=== PATIENT | male | born 1955 | race Caucasian/White ===

== ENCOUNTER 2019-10-01 10:41 | Outpatient (CLI) | payer MEDICARE, SELFPAY ==
--- NOTE | ~2019-10-01 | XR_ITS ---
EXAMINATION: XR hip RT min 2V DATE: 10/01/2019 11:04 INDICATION: Right hip pain. TECHNIQUE: 2 views of right hip were obtained. COMPARISON: Right hip radiographs 04/28/2012 FINDINGS: Bone alignment is normal. No fracture. There is mild right hip osteoarthritis. IMPRESSION: 1. Mild right hip osteoarthritis. Reviewed, dictated and finalized at location A. DITER
== END 2019-10-01 10:42 | disposition home or self-care (01) ==
PROVIDERS: PCP Internal Medicine; Visit Provider Internal Medicine
DX: M25.551 Pain in right hip (principal)
CPT/HCPCS: 73502

== ENCOUNTER 2020-09-13 07:52 | Outpatient (CLI) | payer OTHER, SELFPAY ==
--- NOTE | ~2020-09-13 | MR_ITS ---
EXAMINATION: MR brain/brain stem wo/w con DATE: 09/13/2020 09:34 INDICATION: Diplopia and headaches TECHNIQUE: Magnetic resonance imaging (MRI) of the brain and brainstem was performed without and with 10 mL Multihance intravenous contrast. Sequences included sagittal and axial T1-weighted SE, axial d iffusion-weighted FS SE, axial T2*-weighted GRE, axial T2-weighted FLAIR, and axial T2-weighted FSE. Postcontrast axial, sagittal and coronal T1-weighted SE was obtained. Apparent diffusion coefficient (ADC) maps were created. COMPARISON: None. FINDINGS: There are no areas of restricted diffusion to suggest acute infarction. No intracranial hemorrhage or abnormal intracranial mass lesion. There are no intraparenchymal signal abnormalities seen on the ot her pulse sequences. Symmetric prominence of the sulci consistent with mild age-appropriate diffuse c erebral volume loss. The ventricles are symmetric and normal in size. There are no abnormal extra-axi al fluid collections. Flow voids are seen in the cerebral arteries on the T2-weighted sequences consi stent with their expected patency. Mild mucosal thickening the bilateral ethmoid sinuses. Chronic rig ht mastoid effusion. Visualized orbits and soft tissues are unremarkable. There are no areas of abnor mal enhancement on the post contrast images. IMPRESSION: 1. Normal aging brain. No acute intracranial process or abnormally enhancing brain lesions. Reviewed, dictated and finalized at location A. RVISOR REFINING IMPRESSION: 1. Normal aging brain. No acute intracranial process or abnormally enhancing br ain lesions.
[2020-09-13 08:17] LABS: Estimated Glomerular Filt Rate 57
== END 2020-09-13 07:53 | disposition home or self-care (01) ==
LOC: CHSIMG 07:54
PROVIDERS: PCP Internal Medicine; Visit Provider Internal Medicine
DX: H53.2 Diplopia (principal)
CPT/HCPCS: 70553; A9577

== ENCOUNTER 2021-07-23 07:26 | Outpatient (CLI) | payer MEDICARE, OTHER, SELFPAY ==
[2021-07-23 07:41] LABS: Hematocrit 38.5 % (37.0-46.0); Hemoglobin 12.7 g/dL (12.4-15.3); Mean Corpuscular Hemoglobin 30.2 pg (27.0-31.0); Mean Corpuscular Volume 91.7 fL (78.0-102.0); Platelet Count Result 157 K/mm3 (150-420); Red Cell Distribution Width 11.6 % (11.6-14.4); White Blood Count 6.7 K/mm3 (4.8-10.8)
[2021-07-23 07:43] LABS: Add Urine Microscopic? YES; Appearance Urine Clear (Clear); Bilirubin Urine Negative (Negative); Blood Urine 1+ (Negative); Color Urine Light Yellow (Yellow); Glucose Urine UA Negative (Negative); Ketones Urine Negative (Negative); Leukocyte Esterase Ur Negative (Negative); Nitrate Urine Negative (Negative); Protein Urine Negative (Negative); Specific Grav Ur 1.025 (1.010-1.020); Urobilinogen Urine 0.2 mg/dL (0.2-1.0)
[2021-07-23 07:49] LABS: Bacteria Urine None seen /hpf; RBC Urine 0-2 /hpf (0-2); Squamous Epithelial Cell Urine Rare /hpf (Few); WBC Urine 0-3 /hpf (0-3)
[2021-07-23 08:34] LABS: Band Neutrophils Percent 0 % (0-6); Basophils Absolute Manual 0.13 K/mm3 (0-0.1); Basophils Percent Manual 2 % (0-1); Eosinophils Percent Manual 6 % (1-6); Lymphocytes Absolute Manual 0.87 K/mm3 (1.1-4.5); Lymphocytes Percent Manual 13 % (18-44); Monocytes Absolute Manual 1.67 K/mm3 (0.1-0.90); Monocytes Percent Manual 25 % (3-9); Neutrophils Absolute Manual 3.61 K/mm3 (1.3-6.7); Neutrophils Percent Manual 54 % (46-73); Platelet Estimate Adequate (Adequate); Total Cells Counted 100
[2021-07-23 09:55] LABS: Alanine Aminotransferase 20 U/L (16-63); Albumin Level 3.5 g/dL (3.4-5.0); Alkaline Phosphatase 71 U/L (46-116); Anion Gap 8 mmol/L (8-16); Aspartate Amino Transferase 13 U/L (15-37); Bilirubin,Total 0.3 mg/dL (0.00-1.00); Blood Urea Nitrogen 16 mg/dL (7-18); Calcium 8.3 mg/dL (8.5-10.1); Carbon Dioxide 27 mmol/L (21-32); Chloride 105 mmol/L (98-108); Cholesterol 108 mg/dL (0-200); Creatine Kinase 62 U/L (39-308); Estimated Glomerular Filt Rate 53; Free T3 2.59 pg/mL (2.18-3.98); Free T4 Free Thyroxine 1.17 ng/dL (0.76-1.46); Glucose 87 mg/dL (70-99); HDL Direct 56 mg/dL (40-60); LDL Cholesterol Calculated 46 mg/dL (<130); NT Pro B Type Natriuretic Pept 173 pg/mL (0-125); Osmolality Calculated 290 mOsm/kg (285-295); Potassium 3.9 mmol/L (3.5-5.1); Prostate Specific Antigen 0.9 ng/mL (< OR = 4.0); Sodium 140 mmol/L (136-145); Thyroid Stimulating Hormone 3.55 uIU/mL (0.36-3.74); Total Protein 6.1 g/dL (6.4-8.2); Triglycerides 32 mg/dL (0-150); Vitamin B12 375 pg/mL (193-986)
== END 2021-07-23 07:27 | disposition home or self-care (01) ==
LOC: CHSLAB 07:27
PROVIDERS: PCP Internal Medicine; Visit Provider Internal Medicine
DX: Z00.00 Encounter for general adult medical examination without abnormal findings (principal); R94.6 Abnormal results of thyroid function studies; Z12.5 Encounter for screening for malignant neoplasm of prostate; N39.0 Urinary tract infection, site not specified; I95.2 Hypotension due to drugs; E78.2 Mixed hyperlipidemia; R06.00 Dyspnea, unspecified
CPT/HCPCS: 36415; 80053; 80061; 81001; 82550; 82607; 83880; 84153; 84439; 84443; 84481; 85025; 87086

== ENCOUNTER 2022-01-13 13:05 | Outpatient (CLI) | payer MEDICARE, SELFPAY ==
--- NOTE | 2022-01-13 13:20 | PC.NURSE ---
Pt to room 211 amb. A&Ox3. Complains of sinus symptoms and fatigue. Plan of care explained. Consent signed. Oriented to room. Call willson in reach. Has no questions. Reminded to call with needs.
[2022-01-13] MEDS: ACETAMINOPHEN 325 MG TABLET 650 MG PO (13:38)
[2022-01-13] MEDS: BEBTELOVIMAB 175 MG/2 ML VIAL IV PUSH (13:39)
[2022-01-13] MEDS: FAMOTIDINE 20 MG TABLET PO (13:39)
[2022-01-13] MEDS: diphenhydrAMINE HCl CAP 25 MG CAPSULE PO (13:39)
--- NOTE | 2022-01-13 14:15 | PC.NURSE ---
Pt tolerated medication well. Has no questions or complaints. Discharged to home amb per self.
== END 2022-01-13 13:06 | disposition home or self-care (01) ==
LOC: CHSTREATRM 13:11
PROVIDERS: PCP Family Medicine; Visit Provider Family Medicine
DX: U07.1 COVID-19 (principal); I25.10 Atherosclerotic heart disease of native coronary artery without angina pectoris
CPT/HCPCS: A9270; M0222; Q0222

== ENCOUNTER 2022-03-29 14:00 | Outpatient (RCR) | payer MEDICARE, SELFPAY ==
--- NOTE | 2022-03-24 17:08 | PTOPEVAL ---
Thank you for referring Richard Coles to [facility].? The patient is scheduled to be seen for therapy? ____x/week for ___ weeks. Please review, sign, date and return this plan of care JANESSA. I agree with and certify that the following plan of care is medically necessary. Referring Physician Date Admitting Provider: Attending Provider: Vanita Manzo MD Referring Provider: *PT Outpatient Evaluation Start: 03/24/22 16:05 Freq: Status: Active Protocol: Document 03/24/22 16:07 [facility] (Rec: 03/24/22 17:07 [facility] [id number]) Therapy Assessment Status Assessment Status Assessment Status Evaluation Evaluation Information Problem Diagnosis acute r sided lumbago, R illio -lumbar sprain, R SI joint sprain Onset 03/23/22 Additional Evaluation Detail oswestry = 42% functionally declined Subjective Information patient reports no specific Query Text:As Reported By Patient/ injury. he reports about a Family week or so ago he made a sharp turn around to look for a car while walking. he reports the pain began a few days later. he reports he has had cortizone injections in each hip. he reports he has no had any imaging. he reports he has increased pain in the R side lower back/flank with standing for increased time. he reports he does have pain with sitting, but worse with standing. he reports decreased pain in the mornings, and worse in the evenings. he reports no NTB in the legs. Prior Level of Function Comments Additional Prior Level of Function prior to a week or so ago, no Comments issues with the back or hips. Pain Assessment Timing of Pain Assessment Timing of Pain Assessment Assessment Pain Scale Pain Scale Used Numeric (1 - 10) Self Report Pain Assessment Lower Back Reported Pain Level 6 Greatest Pain Intensity 7 Pain Score Pain Score 6: Self Report Interventions Used Interventions Used By Clinicians Medication,Rest Pain Relief Interventions Used By Heat,Medication,Relaxation Patient Technique,Sitting Cervical and Lumbar ROM Lumbar ROM Lumbar Flexion Active Ankle Query Text:Hands to: Lumbar Extension (0-40)
--- NOTE | 2022-04-29 09:01 | PTOPREEVAL ---
Assessment and note entered by JT File, PT Evaluation Information Assessment Status Re-evaluation Diagnosis acute R sided lumbago, R illio/lumbar sprain, R SIJ sprain Onset 03/23/22 Subjective Information patient reports his hip is much better, but his back is still bothersome. he reports eh just returned from a trip to [place]. he reports it was a long plane ride both ways, and a lot of walking. he reports he has had 2 injections, but reports these have worn off. he reports he has increased pain in the back with standing and sitting for increased time. he reports he has pain all day long. patient reports he has felt he has been taking shallow breaths due to the pain in his thoracic spine. Reported Pain Level Pain Score 5: Self Report Additional Pain Score Comments patient reports no longer having pain in the lower back or SIJ. Assessment PT Clinical Summary mr. yousif presents to therapy for his 7th skilled PT visit. he has not been to therapy in a few weeks due to being on vacation in [facility]. he no longer presents with symptoms of hip, SIJ, or lower back pain. however, his middle/upper back is now painful. he presents with weak scapular stabilizers, poor upper back posture, and pain in the T7-T9 thoracic spine. he would do well to continue therapy for his upper/middle back with an extension of his POC beginning today. Plan of Care Interventions Electrical Stimulation,Hot Pack/Cold Pack,Manual Therapy,Neuro Re-education,Patient/Caregiver Educati,Therapeutic Activities,Therapeutic Exercise PT Services Indicated Yes Treatment Frequency and continue therapy 2x weekly for 6 visits beginning Duration today. These treatments will address the objective and functional deficits as defined above. The patient will be advanced safely and appropriately in order for the patient to progress towards his/her prior level of function. Additional exercises will be introduced and as well as a comprehensive home exercise program upon discharge, if needed, ?to ensure carryover of functional gains achieved in the clinic. This treatment plan has been reviewed and agreement upon by the patient.
--- NOTE | 2022-06-02 09:43 | PTOPDC ---
Assessment and note entered by JT File, PT Evaluation Information Assessment Status Re-evaluation Diagnosis acute R sided lumbago, R illio/lumbar sprain, R SIJ sprain Onset 03/23/22 Subjective Information patient reports he feels pretty good this date. he reports no pain in the upper back today, but some soreness in the lower back. he reports he feels he might have just slept wrong last night. he reports overall he feels much better, but still has increased pain with prolonged standing and walking. Reported Pain Level Pain Score 0,3: Self Report Assessment PT Clinical Summary mr. yousif presents to skilled PT for his 13th skilled therapy visit this date. he presnts with decreased upper back pain, and in general decreased lower back pain overall. however, he is a bit sore from sleeping wrong last night. he displays improved strength and core stability this date. however, he continues to display flexed upper back posture and rounded shoulders. he was educated on an extensive HEP this date to continue with scapular strengthening and postural awareness exercises/activities at home. he would do well to DC skilled PT with having met roughly 75% of goals for skilled PT thus far. he would do well to continue HEP at home. he has an additial order from his MD that will be held for now, and patient will follow up in about 1-2 months with skilled PT. Plan of Care Treatment Frequency and DC to independent HEP and follow up with PT in 1-2 Duration months.
== END 2022-06-02 14:54 | disposition home or self-care (01) ==
LOC: CHSPT 14:00
PROVIDERS: PCP Internal Medicine; Visit Provider Internal Medicine
DX: M54.50 Low back pain, unspecified (principal); M54.2 Cervicalgia; M54.6 Pain in thoracic spine
CPT/HCPCS: 97014; 97110; 97140; 97161; 97530; G0283

== ENCOUNTER 2022-05-13 10:22 | Outpatient (CLI) | payer MEDICARE, SELFPAY ==
--- NOTE | ~2022-05-13 | XR_ITS ---
EXAMINATION:XR_CERV2-3V_CR, XR thoracic spine 3V, XR lumbar spine 2-3V DATE: 05/13/2022 11:18 INDICATION: Back pain TECHNIQUE: 1. AP, lateral and odontoid views of the cervical spine are provided. 2. AP, lateral and lateral swimmer's views of the thoracic spine were obtained. 3. AP, lateral and coned-down lateral lumbosacral views of the lumbar spine were obtained. COMPARISON: None FINDINGS: Cervical spine: Alignment is normal. Odontoid is intact. Normal atlantoaxial interval. Vertebral body heights are no rmal. Disc spaces are normal. Mild to moderate cervical facet osteoarthritis most prominent on the le ft at C4-C5 and C5-C6 and bilaterally at C7-T1. Prevertebral soft tissues are normal. Thoracic spine: 10 degrees upper thoracic levocurvature. Mild upper thoracic kyphosis. Vertebral body heights are nor mal. Multilevel mild to moderate disc height loss most prominent in the mid to upper thoracic spine. Visualized portion of the lungs are clear. Lumbar spine: 6 degrees lumbar dextrocurvature. Sagittal alignment is normal. Vertebral body heights are normal. Di sc heights are normal. Multilevel lumbar facet osteoarthritis, mild in the mid upper lumbar spine and moderate severity at L4-L5 and L5-S1. Sacral arches are intact. Mild left and minimal right sacroili ac osteoarthritis. IMPRESSION: 1. Mild upper thoracic levocurvature and mild kyphosis with mild to moderate thoracic spondylosis. 2. Mild to moderate facet osteoarthritis in the cervical and lumbar spine where there are relatively preserved disc spaces. Reviewed, dictated and finalized at location B. IMPRESSION: 1. Mild upper thoracic levocurvature and mild kyphosis with mild to moderate th oracic spondylosis. 2. Mild to moderate facet osteoarthritis in the cervical and lumbar spine where there are relatively preserved disc spaces. IMPRESSION: 1. Mild upper thoracic levocurvature and mild kyphosis with mild to moderate th oracic spondylosis. 2. Mild to moderate facet osteoarthritis in the cervical and lumbar spine where there are relatively preserved disc spaces.
== END 2022-05-13 10:23 | disposition home or self-care (01) ==
LOC: CHSIMG 10:24
PROVIDERS: PCP Internal Medicine; Visit Provider Internal Medicine
DX: M54.9 Dorsalgia, unspecified (principal); M47.812 Spondylosis without myelopathy or radiculopathy, cervical region; M47.816 Spondylosis without myelopathy or radiculopathy, lumbar region
CPT/HCPCS: 72040; 72072; 72100

== ENCOUNTER 2022-06-03 08:24 | Outpatient (CLI) | payer MEDICARE, SELFPAY ==
--- NOTE | ~2022-06-03 | MR_ITS ---
EXAMINATION: MR lumbar spine wo con DATE: 06/03/2022 09:48 INDICATION: 6 weeks of low back pain TECHNIQUE: Magnetic resonance imaging (MRI) of the lumbar spine was performed without intravenous con trast. Sequences included sagittal T2-weighted FSE, sagittal T2-weighted FS FSE, sagittal T1-weighted FSE, and axial T2-weighted FSE. COMPARISON: None FINDINGS: Alignment is normal. Vertebral body heights are normal. Small Schmorl's node along the inferior endpl ate of L1. T1 and T2 hyperintense hemangioma at the right side of L5. Otherwise normal marrow signal. Disc heights are normal with multilevel disc desiccation most prominent at L1-L2. The conus medullar is terminates at L2. There is normal signal in the caudal spinal cord. 9 mm T2 hyperintense cyst at t he upper pole of the left kidney. Paravertebral soft tissues are unremarkable. The following disc lev els are specifically discussed: T12-L1: The disc does not extend beyond the endplate margin. There is mild bilateral facet joint oste oarthritis. There is no neural foraminal stenosis. There is no central canal stenosis. L1-L2: Disc is mildly bulging. There is moderate bilateral facet joint osteoarthritis. There is minim al bilateral neural foraminal stenosis. There is minimal central canal stenosis. L2-L3: Disc is mildly bulging. There is mild left and moderate right facet joint osteoarthritis. Ther e is mild left and minimal right neural foraminal stenosis. There is mild central canal stenosis. L3-L4: Moderate diffuse disc bulge with superimposed and right foraminal zone annular fissure and dis c extrusion with disc material extending couple millimeters cephalad and caudal to the level of the e ndplates at the right foraminal zone. There is mild to moderate bilateral facet joint osteoarthritis. There is moderate right and mild to moderate left neural foraminal stenosis. There is mild central c anal stenosis with asymmetric mild narrowing of the right lateral recess. L4-L5: Disc is mildly bulging. There is moderate right and moderate to severe left facet joint osteoa rthritis. There is moderate bilateral neural foraminal stenosis. There is mild central canal stenosis . L5-S1: Disc is mildly bulging with annular fissure. There is mild right and mild to moderate left fac et joint osteoarthritis. There is mild to moderate bilateral neural foraminal stenosis. There is no c entral canal stenosis. IMPRESSION: 1. Mild lumbar spondylosis. Reviewed, dictated and finalized at location B. IMPRESSION: 1. Mild lumbar spondylosis.
== END 2022-06-03 08:25 | disposition home or self-care (01) ==
LOC: CHSIMG 08:26
PROVIDERS: PCP Internal Medicine; Visit Provider Internal Medicine
DX: M54.50 Low back pain, unspecified (principal)
CPT/HCPCS: 72148

== ENCOUNTER 2022-11-11 16:49 | Emergency (ER) | payer MEDICARE, SELFPAY ==
[2022-11-11] VITALS (19 sets, daily range): BP systolic 79–146; BP diastolic 51–85; PULSE 50–70; RESP 12–18; TEMP 36.2; O2SAT 94–100
--- NOTE | ~2022-11-11 | CT_ITS ---
EXAMINATION: CT brain wo con INDICATION: Lightheadedness, hypotension COMPARISON: 01/19/2013 TECHNIQUE: Standard unenhanced head CT. The dose-length product (DLP) was 681.00 mGy-cm. The mA was a djusted according to patient size. Iterative reconstruction technique was employed. FINDINGS: There is no intracranial hemorrhage, acute infarction, or abnormal mass lesion. The ventric les are normal. There is no abnormal mass effect or midline shift. The velasco-white matter differentiat ion is normal. The basal cisterns are patent. The orbits are normal. The paranasal sinuses, mastoids and calvarium are normal. IMPRESSION: 1. No acute intracranial abnormality. Reviewed, dictated and finalized at location F.
--- NOTE | ~2022-11-11 | XR_ITS ---
EXAMINATION: XR chest 1V portable INDICATION: Lightheadedness, hypotension TECHNIQUE: Portable AP chest at 1809 hours COMPARISON: 09/20/2011 FINDINGS: The lungs are free of acute opacities. No pleural effusion or pneumothorax. The cardiomedia stinal silhouette is normal. IMPRESSION: 1. No acute cardiopulmonary abnormality. Reviewed, dictated and finalized at location F.
--- NOTE | 2022-11-11 17:11 | ECG_ITS ---
Measurements Intervals [place] Rate: 55 P: GA: 269 QRS: 27 QRSD: 112 T: 64 QT: 455 QTc: 438 Interpretive Statements SINUS BRADYCARDIA WITH FIRST-DEGREE AV BLOCK INFERIOR MYOCARDIAL INFARCTION, PROBABLY OLD WITH POSTERIOR EXTENSION ABNORMAL ECG NO PREVIOUS ECG AVAILABLE FOR COMPARISON Electronically Signed On 11-12-2022 16:03:16 CDT by Connor Busby M.D.
[2022-11-11] MEDS: SODIUM CHLORIDE 0.9% IV 1,000 ML 999 ML IV CONT (17:18)
[2022-11-11 17:30] LABS: Mean Corpuscular HGB Conc 32.4 g/dL (32.0-36.0); Mean Corpuscular Hemoglobin 29.2 pg (27.0-31.0); Platelet Count Result 217 K/mm3 (150-420); Red Blood Count 4.11 M/mm3 (4.70-6.10); Red Cell Distribution Width 11.6 % (11.6-14.4); White Blood Count 6.3 K/mm3 (4.8-10.8)
[2022-11-11 17:51] LABS: D Dimer 0.19 mg/L (0.19-0.50); Partial Thromboplastin Time 26.9 SEC (23.90-30.70); Prothrombin Time 10.6 Seconds (9.50-12.10)
[2022-11-11 17:54] LABS: Neutrophils Percent Manual 52 % (46-73)
[2022-11-11 17:55] LABS: Band Neutrophils Percent 0 % (0-6); Basophils Percent Manual 0 % (0-1); Eosinophils Absolute Manual 0.31 K/mm3 (0.02-0.5); Eosinophils Percent Manual 5 % (1-6); Lymphocytes Absolute Manual 1.57 K/mm3 (1.1-4.5); Lymphocytes Percent Manual 25 % (18-44); Monocytes Absolute Manual 1.13 K/mm3 (0.1-0.90); Monocytes Percent Manual 18 % (3-9); Neutrophils Absolute Manual 3.27 K/mm3 (1.3-6.7); Platelet Estimate Adequate (Adequate)
[2022-11-11 17:58] LABS: Lactic Acid Reflex 0.7 mmol/L (0.4-2.0)
[2022-11-11 17:59] LABS: Alanine Aminotransferase 28 U/L (16-63); Albumin Level 3.5 g/dL (3.4-5.0); Alkaline Phosphatase 59 U/L (46-116); Anion Gap 8 mmol/L (8-16); Aspartate Amino Transferase 17 U/L (15-37); Bilirubin,Total 0.2 mg/dL (0.00-1.00); Blood Urea Nitrogen 27 mg/dL (7-18); Calcium 8.3 mg/dL (8.5-10.1); Carbon Dioxide 27 mmol/L (21-32); Chloride 107 mmol/L (98-108); Estimated CRCL calculation 46 ml/min; Estimated Glomerular Filt Rate 51; Glucose 103 mg/dL (70-99); NT Pro B Type Natriuretic Pept 672 pg/mL (0-125); Osmolality Calculated 299 mOsm/kg (285-295); Potassium 3.7 mmol/L (3.5-5.1); Sodium 142 mmol/L (136-145); Total Protein 6.3 g/dL (6.4-8.2)
[2022-11-11 18:03] LABS: Troponin I 102.1 ng/L (0.00-60.4)
--- NOTE | 2022-11-11 19:08 | PC.NURSE ---
Lab called to inform that their equipment is malfunctioning, and we will need to send chemistry including troponins to [facility] to be ran for the remainder of the evening. Pt has a 3hr repeat trop ordered for later tonight, so Dr. Cerda made aware of this future delay. 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
--- NOTE | 2022-11-11 19:38 | ED.DIZZY ---
HPI - Dizziness General Chief Complaint: Dizziness Stated Complaint: dizzy; low BP Time Seen by Provider: 11/11/22 17:01 Source: patient Mode of arrival: ambulatory Limitations: no limitations History of Present Illness HPI Narrative: this is a 67-year-old male that presents with a 3 day history of dizziness that he presented to his primary care physician's office with some dizziness and was sent to the ER for further evaluation. Patient has a history of CAD and history of cardiomyopathy, patient currently is not having any chest pain or shortness of breath there is no abdominal pain no nausea vomiting patient has a history of depression obstructive sleep apnea and hyperlipidemia, is a non smoker. MD elicited complaint: dizziness, lightheadedness, near syncope and difficulty walking Onset (ago): day(s) Timing: gradual onset Severity: moderate Description: lightheadedness, off-balance, difficulty walking and near-syncope Related Data Home Medications Medication Instructions Recorded Confirmed aripiprazole 15 mg tablet (Abilify) 15 mg PO DAILY 11/11/22 11/11/22 aspirin 81 mg tablet 81 mg PO DAILY 11/11/22 11/11/22 atorvastatin 20 mg tablet 10 mg PO DAILY 11/11/22 11/11/22 famotidine 20 mg tablet 40 mg PO QHS 11/11/22 11/11/22 fludrocortisone 0.1 mg tablet 0.1 mg PO BID 11/11/22 11/11/22 fluticasone propionate 50 2 spray intranasal DAILY 11/11/22 11/11/22 mcg/actuation nasal spray,suspension hydroxyzine pamoate 50 mg capsule 12.5 mg PO TID 11/11/22 11/11/22 lamotrigine 100 mg tablet 100 mg PO BID 11/11/22 11/11/22 lorazepam 0.5 mg tablet 1 mg PO BID 11/11/22 11/11/22 omeprazole 40 mg capsule,delayed 40 mg PO BID 11/11/22 11/11/22 release tranylcypromine 10 mg tablet 40 mg PO BID 11/11/22 11/11/22 (Parnate) trazodone 150 mg tablet 50 mg PO QHS 11/11/22 11/11/22 Allergies Allergy/AdvReac Type Severity Reaction Status Date / Time Penicillins Allergy Unknown UNKNOWN Verified 11/11/22 17:01 Review of Systems Review of Systems: All systems reviewed & are unremarkable except as noted in HPI and below PMFSH Past Medical History Medical History CAD (coronary artery disease) Cardiomyopathy GERD (gastroesophageal reflux disease) Exam Const: General: ill appearing Nutritional Appearance: well nourished Orientation/consciousness: patient oriented x3 Limitations: no limitations HENMT: Head: normal to inspection Eyes: Conjunctivae: conjunctivae normal Pupils: Equal, round and reactive pupils present EOM: EOMs intact bilaterally Neck: Neck: normal visual inspection Chest: Chest palpation & inspection: normal inspection of the chest Resp: Effort & Inspection: normal respiratory effort Cardio: Rate: bradycardic Rhythm: regular rhythm GI: Auscultation: normal bowel sounds Urinary Catheter: Urinary Catheter: patent and draining Skin: General skin exam: normal color Neuro: General: patient oriented x3 and moves all extremities Cranial nerves: Yes Nystagmus not present Speech: normal speech Extrem: General: normal to inspection Psych: Mental Status: mental status grossly normal Affect: normal affect Attitude: cooperative Course Course Emergency Course: labs performed and reviewed with patient, troponin was elevated at 102 his BMP also elevated at 672 I had a chest x-ray which showed no acute cardiopulmonary findings and CT brain with no acute findings. Spoke with some Cardiology at [facility] in [place] which accepted the patient for transfer. Patient continues to be comfortable with no shortness of breath no chest pain blood pressure is stable at 120 1/80 and currently he continues to have dizziness. Vital Signs Vital signs: Vital Signs Temperature 36.2 C L 11/11/22 16:49 Pulse Rate 70 11/11/22 16:49 Respiratory Rate 18 11/11/22 16:49 Blood Pressure 90/62 L 11/11/22 16:49 Pulse Oximetry 96 11/11/22 16:49 Ox
[2022-11-11] MEDS: ASPIRIN 325 MG ENTERIC TABLET PO (20:10)
== END 2022-11-11 21:50 | disposition short-term general hospital (02) ==
PROVIDERS: Emergency Provider Emergency Medicine; PCP Internal Medicine
DX: I21.4 Non-ST elevation (NSTEMI) myocardial infarction (principal); R42 Dizziness and giddiness; I25.10 Atherosclerotic heart disease of native coronary artery without angina pectoris; Z79.82 Long term (current) use of aspirin; Z79.899 Other long term (current) drug therapy
CPT/HCPCS: 36415; 70450; 71045; 80053; 83605; 83735; 83880; 84484; 85025; 85380; 85610; 85730; 93005; 96360; 99285; A9270; J7030

== ENCOUNTER 2022-11-30 08:03 | Outpatient (RCR) | payer MEDICARE, SELFPAY ==
--- NOTE | 2022-11-30 08:45 | PTOPEVAL1 ---
Assessment and note entered by [facility] Evaluation Information Assessment Status Evaluation Diagnosis weakness, low back pain Onset 11/22/22 Subjective Information Pt. reports that he has noticed he is fatiguing more easily. He reports that he attempts to walk about 1 mile a day, but it is getting more difficult. He states that he was recently at the doctor, and the doctor was concerned regarding the elevation of his BP with light activity. He does take medication due to low BP. He reports that he as not been diagnosed with CHF, but does have cardiomyopathy. He reports that his goal is to improve the strength in his legs and to improve his endurance. Reported Pain Level Pain Score 0: Self Report Assessment PT Clinical Summary Pt. enters the clinic due to reports of generalized weakness and SOB. He demonstrates mild changes in vitals with his 6 minute walk test . Functional deficits are minimal at this time. He currently presents with mild proximal l.e. weakness and core weakness. Continued skilled PT is indicated in order to assist with developing the pt. HEP and to assist with improvements in endurance with IADL's. Plan of Care Interventions Neuro Re-education,Patient/Caregiver Educati, Therapeutic Activities,Therapeutic Exercise PT Services Indicated Yes Treatment Frequency and 1x/week x 4 visits Duration These treatments will address the objective and functional deficits as defined above. The patient will be advanced safely and appropriately in order for the patient to progress towards his/her prior level of function. Additional exercises will be introduced and as well as a comprehensive home exercise program upon discharge, if needed, ?to ensure carryover of functional gains achieved in the clinic. This treatment plan has been reviewed and agreement upon by the patient.
== END 2022-12-28 09:02 | disposition home or self-care (01) ==
LOC: CHSPT 08:03
PROVIDERS: PCP Internal Medicine; Visit Provider Internal Medicine
DX: M54.50 Low back pain, unspecified (principal); R53.1 Weakness
CPT/HCPCS: 97110; 97112; 97161; 97530

== ENCOUNTER 2023-02-03 16:04 | Emergency (ER) | payer MEDICARE, SELFPAY ==
[2023-02-03 16:04] VITALS: BP 133/84; PULSE 68; RESP 20; TEMP 36.9; O2SAT 97
[2023-02-03 16:14] VITALS: BP 151/87; PULSE 62
[2023-02-03 16:15] VITALS: BP 158/98; PULSE 67
[2023-02-03 16:16] VITALS: BP 133/84; PULSE 69
[2023-02-03 16:30] VITALS: BP 142/92
--- NOTE | 2023-02-03 16:35 | ED.GENADULT ---
HPI - General Adult General Chief complaint: Unspecified Stated complaint: low bp Time Seen by Provider: 02/03/23 16:21 Source: patient Mode of arrival: ambulatory Limitations: no limitations History of Present Illness HPI narrative: This is a 68-year-old male that presents with some hypotensive issues while at home he had a blood pressure leading that was quite low and was seen and is primaries office and had low blood pressure presented to the ER per advice by his primary with low blood pressure. The patient appears comfortable with no chest pain no shortness of breath no fever chills no abdominal pain no nausea vomiting no diarrhea or constipation. The patient does take medication for low blood pressure. Here blood pressure is reading at 133/84 without any orthostatic changes. Onset (ago): hour(s) Related Data Home Medications Medication Instructions Recorded Confirmed aripiprazole 15 mg tablet (Abilify) 15 mg PO DAILY 11/11/22 11/11/22 aspirin 81 mg tablet 81 mg PO DAILY 11/11/22 11/11/22 atorvastatin 20 mg tablet 10 mg PO DAILY 11/11/22 11/11/22 famotidine 20 mg tablet 40 mg PO QHS 11/11/22 11/11/22 fludrocortisone 0.1 mg tablet 0.1 mg PO BID 11/11/22 11/11/22 fluticasone propionate 50 2 spray intranasal DAILY 11/11/22 11/11/22 mcg/actuation nasal spray,suspension hydroxyzine pamoate 50 mg capsule 12.5 mg PO TID 11/11/22 11/11/22 lamotrigine 100 mg tablet 100 mg PO BID 11/11/22 11/11/22 lorazepam 0.5 mg tablet 1 mg PO BID 11/11/22 11/11/22 omeprazole 40 mg capsule,delayed 40 mg PO BID 11/11/22 11/11/22 release tranylcypromine 10 mg tablet 40 mg PO BID 11/11/22 11/11/22 (Parnate) trazodone 150 mg tablet 50 mg PO QHS 11/11/22 11/11/22 Allergies Allergy/AdvReac Type Severity Reaction Status Date / Time Penicillins Allergy Unknown UNKNOWN Verified 11/11/22 17:01 Review of Systems Review of Systems: All systems reviewed & are unremarkable except as noted in HPI and below PMFSH Past Medical History Medical History CAD (coronary artery disease) Cardiomyopathy GERD (gastroesophageal reflux disease) Exam Const: General: cooperative, healthy appearing, comfortable, no acute distress and well developed HENMT: Mouth: Yes Normal oral and palatal mucosa present Throat: posterior oropharynx normal Eyes: General: appearance normal, both eyes and all related structures Neck: Neck: normal visual inspection, full ROM and no lymphadenopathy Chest: Chest palpation & inspection: normal inspection of the chest and normal palpation of entire chest wall Resp: Effort & Inspection: normal respiratory effort and able to speak in complete sentences Cardio: Jugular venous distension: no JVD Palpation: normal PMI Rate: regular rate Rhythm: regular rhythm GI: Inspection: normal to inspection Auscultation: normal bowel sounds Back/Spine/Pelvis: Back: no CVA tenderness Skin: General skin exam: normal color and no rashes or lesions noted Neuro: General: oriented to person, oriented to place and oriented to time Extrem: General: normal to inspection, full ROM and capillary refill normal Course Course Emergency Course: Blood pressure readings 133/84 and was not orthostatic, currently appears comfortable and declining any blood work at this time since he feels fine and his blood pressure is stable. Vital Signs Vital signs: Vital Signs Temperature 36.9 C 02/03/23 16:04 Pulse Rate 68 02/03/23 16:04 Respiratory Rate 20 02/03/23 16:04 Blood Pressure 133/84 02/03/23 16:04 Pulse Oximetry 97 02/03/23 16:04 Oxygen Delivery Room Air 02/03/23 16:04 Temperature 36.9 C 02/03/23 16:04 Pulse Rate 69 02/03/23 16:16 Respiratory Rate 20 02/03/23 16:04 Blood Pressure 133/84 02/03/23 16:16 Pulse Oximetry 97 02/03/23 16:04 Oxygen Delivery Room Air 02/03/23 16:04 Medical Decision Making Vital Signs Vital Signs:
[2023-02-03 16:45] VITALS: BP 153/94; PULSE 64; RESP 18; O2SAT 95
== END 2023-02-03 16:57 | disposition home or self-care (01) ==
PROVIDERS: Emergency Provider Emergency Medicine; PCP Internal Medicine
DX: I95.89 Other hypotension (principal); I25.10 Atherosclerotic heart disease of native coronary artery without angina pectoris; Z79.82 Long term (current) use of aspirin; Z79.899 Other long term (current) drug therapy
CPT/HCPCS: 99281

== ENCOUNTER 2024-06-11 15:19 | Emergency (ER) | payer MEDICARE, SELFPAY ==
[2024-06-11] VITALS (19 sets, daily range): BP systolic 90–139; BP diastolic 53–81; PULSE 58–73; RESP 14–16; TEMP 36.3–36.9; O2SAT 83–100
--- NOTE | 2024-06-11 15:24 | ECG_ITS ---
Test Date: 2024-06-11 15:48:17 Measurements Intervals Monument Rate: 50 P: 60 TN: 221 QRS: 51 QRSD: 113 T: 74 QT: 434 QTc: 400 Interpretive Statements SINUS BRADYCARDIA WITH FIRST DEGREE AV BLOCK MINIMAL Q WAVES- INFERIOR LEADS BORDERLINE ECG No previous ECG available for comparison Electronically Signed On 06-11-2024 18:21:33 OIL GAUGER by Luisito Angeles D.O.
--- NOTE | 2024-06-11 15:28 | ED.DIZZY ---
HPI - Dizziness General Chief Complaint: Dizziness Stated Complaint: LOW BLOOD PRESSURE Time Seen by Provider: 06/11/24 15:24 History of Present Illness HPI Narrative: Pt says he has low Bp readings at home of 70/40. Pt has history of orthostatic hypotension and says he takes cortisone and this has stabilized the issue. Pt feels a little dizzy with position changes but denies syncope, CP, SOB or melena. Related Data Home Medications Medication Instructions Recorded Confirmed aripiprazole 15 mg tablet (Abilify) 15 mg PO DAILY 11/11/22 11/11/22 aspirin 81 mg tablet 81 mg PO DAILY 11/11/22 11/11/22 atorvastatin 20 mg tablet 10 mg PO DAILY 11/11/22 11/11/22 famotidine 20 mg tablet 40 mg PO QHS 11/11/22 11/11/22 fludrocortisone 0.1 mg tablet 0.1 mg PO BID 11/11/22 11/11/22 fluticasone propionate 50 2 spray intranasal DAILY 11/11/22 11/11/22 mcg/actuation nasal spray,suspension hydroxyzine pamoate 50 mg capsule 12.5 mg PO TID 11/11/22 11/11/22 lamotrigine 100 mg tablet 100 mg PO BID 11/11/22 11/11/22 lorazepam 0.5 mg tablet 1 mg PO BID 11/11/22 11/11/22 omeprazole 40 mg capsule,delayed 40 mg PO BID 11/11/22 11/11/22 release tranylcypromine 10 mg tablet 40 mg PO BID 11/11/22 11/11/22 (Parnate) trazodone 150 mg tablet 50 mg PO QHS 11/11/22 11/11/22 Allergies Allergy/AdvReac Type Severity Reaction Status Date / Time Penicillins Allergy Unknown UNKNOWN Verified 06/11/24 15:30 Review of Systems Review of Systems: All systems reviewed & are unremarkable except as noted in HPI and below PMFSH Past Medical History Medical History CAD (coronary artery disease) Cardiomyopathy GERD (gastroesophageal reflux disease) Exam Const: General: healthy appearing and no acute distress Nutritional Appearance: well nourished Orientation/consciousness: patient oriented x3 Limitations: no limitations Resp: Effort & Inspection: normal respiratory effort Auscultation: clear to auscultation bilaterally Cardio: Rate: regular rate Rhythm: regular rhythm GI: GI Palp: Yes Soft to palpation and No Tenderness to palpation present (GI) Auscultation: normal bowel sounds Skin: General skin exam: normal color Rashes: no rashes Wounds: no wounds Neuro: General: patient oriented x3, moves all extremities, no meningeal signs, no focal motor deficits and CN's II-XI intact bilaterally Cranial nerves: Yes Nystagmus not present Speech: normal speech Extrem: General: normal to inspection and no clubbing, cyanosis or edema Psych: Mental Status: mental status grossly normal Affect: normal affect Attitude: cooperative Course Vital Signs Vital signs: Vital Signs Temperature 97.4 F L 06/11/24 15:20 Pulse Rate 68 06/11/24 15:20 Respiratory Rate 16 06/11/24 15:20 Blood Pressure 116/67 06/11/24 15:20 Pulse Oximetry 96 06/11/24 15:20 Oxygen Delivery Room Air 06/11/24 15:20 Temperature 97.4 F L 06/11/24 15:20 Pulse Rate 59 L 06/11/24 16:15 Respiratory Rate 14 06/11/24 16:15 Blood Pressure 127/76 06/11/24 16:15 Pulse Oximetry 100 06/11/24 16:16 Oxygen Delivery Room Air 06/11/24 15:20 MDM - Dizziness MDM Narrative Medical decision making narrative: Pt presents with dizziness and low BP. Pt has a history of orthostatic hypotension. Pt denies vomiting or diarrhea or melena. Pt take cortisone and has missed no doses. Will check orthostatics (lying was SBP 116), and labs and get ekg. Will give NS bolus. Pt feels better after fluids. WBC up likely due to steroids. Other labs unremarkable for most part. OK for discharge Lab Data 06/11/24 15:39 06/11/24 15:39 Labs: Lab Results 06/11/24 Range/Units 15:39 WBC 14.7 H (4.8-10.8) K/mm3 RBC 4.07 L (4.70-6.10) M/mm3 Hgb 12.1 L (12.4-15.3) g/dL Hct 36.1 L (37.0-46.0) % MCV 88.7 (78.0-102.0) fL MCH 29.7 (27.0-31.0) pg MCHC 33.5 (32-36) g/dL RDW 11.7 (11.6-14.4) % Plt Count 230 (150-420) K/mm3 MPV 9.8 (8.7-11.0) fl Immature Gran % (Auto) 0.5 H (0.0-0.0) % Neut % (Auto) 71.2 H (50.0-70.0) % Lymph % (Auto) 9.4 L (18.0-42.0) % [place] % (Auto) 16.5 H (2.0-11.0) % Eos % (Auto) 2.3 (1.0-6.0) % Baso % (Auto) 0.1 (0.0-1.0) % Lymph # (Auto) 1.38 (1.10-4.50) K/mm3 [place] # (Auto) 2.43 H (0.10-0.90) K/mm3 Eos # (Auto) 0.34 (0.02-0.50) K/mm3 Baso # (Auto) 0.02 (0.00-0.10) K/mm3 Abs Immat Gran (auto) 0.08 H (0.00-0.00) K/mm3 Absolute Neuts (auto) 10.48 H (1.70-7.20) K/mm3 Absolute Nucleated RBC 0.00 (0.00-0.00) K/mm3 Nucleated RBC % 0.0 (0-0.0) % PT 10.5 (9.50-12.1) Seconds INR 1.0 APTT 29.5 (23.9-30.70) Sec Sodium 140 (136-145) mmol/L Potassium 4.1 (3.5-5.1) mmol/L Chloride 104 (98-108) mmol/L Carbon Dioxide 28 (21-32) mmol/L Anion Gap 8 (4-12) mmol/L BUN 18 (7-18) mg/dL Creatinine 1.25 (0.70-1.30) mg/dL Estim Creat Clear Calc 52 ml/min Estimated GFR 57 L (59 - ) Glucose 105 H (70-99) mg/dL Calculated Osmolality 291 (285-295) mOsm/kg Calcium 9.0 (8.5-10.1) mg/dL Magnesium 2.2 (1.8-2.4) mg/dL Total Bilirubin 0.4 (0.00-1.00) mg/dL AST 14 L (15-37) U/L ALT 28 (16-63) U/L Alkaline Phosphatase 62 (46-116) U/L Troponin I 8.4 (0.00-60.4) ng/L NT-Pro-B Natriuret Pep 274 H (0-125) pg/mL Total Protein 6.2 L (6.4-8.2) g/dL Albumin 3.2 L (3.4-5.0) g/dL ECG Data EKG #1: Interpretation: sinus jerome with 1st degree av block, no acute st changes rate 50 Discharge Plan Discharge Clinical Impression: Orthostatic hypotension Patient Disposition: Home, Self-Care Condition: Improved Instructions: Antibiotic Form, Lightheadedness (ED) Prescriptions: No Action atorvastatin 20 mg tablet 10 mg PO DAILY tranylcypromine [Parnate] 10 mg Tablet 40 mg PO BID hydroxyzine pamoate 50 mg capsule 12.5 mg PO TID omeprazole 40 mg capsule,delayed release(DR/EC) 40 mg PO BID famotidine 20 mg tablet 40 mg PO QHS lorazepam 0.5 mg tablet 1 mg PO BID trazodone 150 mg tablet 50 mg PO QHS aspirin 81 mg Tablet 81 mg PO DAILY fluticasone propionate 50 mcg/actuation spray,suspension 2 spray INTRANASAL DAILY fludrocortisone 0.1 mg tablet 0.1 mg PO BID lamotrigine 100 mg tablet 100 mg PO BID aripiprazole [Abilify] 15 mg Tablet 15 mg PO DAILY Rx Instructions: every tuesday and Follow-up/Referrals: Vanita Manzo MD [Primary Care Provider] -
[2024-06-11] MEDS: SODIUM CHLORIDE 0.9% IV 1,000 ML 999 ML IV CONT (15:33)
[2024-06-11 15:45] LABS: Basophils Absolute Auto 0.02 K/mm3 (0.00-0.10); Basophils Percent Auto 0.1 % (0.0-1.0); Eosinophils Absolute Auto 0.34 K/mm3 (0.02-0.50); Eosinophils Percent Auto 2.3 % (1.0-6.0); Hematocrit 36.1 % (37.0-46.0); Hemoglobin 12.1 g/dL (12.4-15.3); Immature Granulocyte Absolute 0.08 K/mm3 (0.00-0.00); Immature Granulocyte Percent A 0.5 % (0.0-0.0); Lymphocytes Absolute Auto 1.38 K/mm3 (1.10-4.50); Lymphocytes Percent Auto 9.4 % (18.0-42.0); Mean Corpuscular HGB Conc 33.5 g/dL (32-36); Mean Corpuscular Hemoglobin 29.7 pg (27.0-31.0); Mean Corpuscular Volume 88.7 fL (78.0-102.0); Mean Platelet Volume 9.8 fl (8.7-11.0); Monocytes Absolute Auto 2.43 K/mm3 (0.10-0.90); Monocytes Percent Auto 16.5 % (2.0-11.0); Neutrophils Absolute Auto 10.48 K/mm3 (1.70-7.20); Neutrophils Percent Auto 71.2 % (50.0-70.0); Platelet Count Result 230 K/mm3 (150-420); Red Blood Count 4.07 M/mm3 (4.70-6.10); Red Cell Distribution Width 11.7 % (11.6-14.4); White Blood Count 14.7 K/mm3 (4.8-10.8)
[2024-06-11 16:01] LABS: Partial Thromboplastin Time 29.5 Sec (23.9-30.70); Prothrombin Time 10.5 Seconds (9.50-12.1)
[2024-06-11 16:16] LABS: Alanine Aminotransferase 28 U/L (16-63); Albumin Level 3.2 g/dL (3.4-5.0); Alkaline Phosphatase 62 U/L (46-116); Aspartate Amino Transferase 14 U/L (15-37); Bilirubin,Total 0.4 mg/dL (0.00-1.00); Magnesium 2.2 mg/dL (1.8-2.4); NT Pro B Type Natriuretic Pept 274 pg/mL (0-125); Total Protein 6.2 g/dL (6.4-8.2); Troponin I 8.4 ng/L (0.00-60.4)
[2024-06-11 16:17] LABS: Anion Gap 8 mmol/L (4-12); Blood Urea Nitrogen 18 mg/dL (7-18); Carbon Dioxide 28 mmol/L (21-32); Chloride 104 mmol/L (98-108); Osmolality Calculated 291 mOsm/kg (285-295); Potassium 4.1 mmol/L (3.5-5.1); Sodium 140 mmol/L (136-145)
[2024-06-11 16:18] LABS: Estimated CRCL calculation 52 ml/min; Estimated Glomerular Filt Rate 57; Glucose 105 mg/dL (70-99)
== END 2024-06-11 17:09 | disposition home or self-care (01) ==
PROVIDERS: Emergency Provider Emergency Medicine; PCP Internal Medicine
DX: I95.1 Orthostatic hypotension (principal); I25.10 Atherosclerotic heart disease of native coronary artery without angina pectoris; Z79.899 Other long term (current) drug therapy
CPT/HCPCS: 36415; 80053; 83735; 83880; 84484; 85025; 85610; 85730; 93005; 96360; 99284; J7030

== ENCOUNTER 2024-06-12 16:32 | Outpatient (CLI) | payer MEDICARE, SELFPAY ==
--- NOTE | ~2024-06-12 | XR_ITS ---
HISTORY: Left thumb pain COMPARISON: None TECHNIQUE: 3 views of the left hand were performed. FINDINGS: No acute or subacute fracture is identified. The joint spaces of the wrist are preserved. The carpal arcs are intact. Periarticular osteopenia is present. Degenerative disease within the first carpometacarpal joint space. Bone mineralization is unremarkable for patient of this age. No significant soft tissue swelling. No radiopaque foreign body is identified. IMPRESSION: Degenerative disease, without acute fracture or dislocation within the left hand, as detailed above. Reviewed, dictated and finalized at location A. RTISING MANAGER IMPRESSION: Degenerative disease, without acute fracture or dislocation within the left llanos d, as detailed above.
[2024-06-12 16:57] LABS: Hematocrit 36.1 % (37.0-46.0); Hemoglobin 11.9 g/dL (12.4-15.3); Mean Corpuscular Hemoglobin 29.3 pg (27.0-31.0); Mean Corpuscular Volume 88.9 fL (78.0-102.0); Mean Platelet Volume 9.7 fl (8.7-11.0); Platelet Count Result 202 K/mm3 (150-420); Red Blood Count 4.06 M/mm3 (4.70-6.10); Red Cell Distribution Width 11.9 % (11.6-14.4); White Blood Count 6.3 K/mm3 (4.8-10.8)
[2024-06-12 17:19] LABS: Alanine Aminotransferase 18 U/L (16-63); Albumin Level 3.2 g/dL (3.4-5.0); Alkaline Phosphatase 63 U/L (46-116); Anion Gap 7 mmol/L (4-12); Aspartate Amino Transferase 11 U/L (15-37); Bilirubin,Total 0.3 mg/dL (0.00-1.00); Blood Urea Nitrogen 17 mg/dL (7-18); Calcium 8.7 mg/dL (8.5-10.1); Carbon Dioxide 28 mmol/L (21-32); Chloride 106 mmol/L (98-108); Estimated Glomerular Filt Rate > 60; Glucose 97 mg/dL (70-99); Osmolality Calculated 293 mOsm/kg (285-295); Potassium 4.2 mmol/L (3.5-5.1); Prostate Specific Antigen 0.7 ng/mL (< OR = 4.0); Sodium 141 mmol/L (136-145); Total Protein 6.1 g/dL (6.4-8.2)
== END 2024-06-12 16:33 | disposition home or self-care (01) ==
PROVIDERS: PCP Internal Medicine; Visit Provider Internal Medicine
DX: D72.829 Elevated white blood cell count, unspecified (principal); R68.83 Chills (without fever); N41.8 Other inflammatory diseases of prostate; M79.645 Pain in left finger(s); N42.9 Disorder of prostate, unspecified
CPT/HCPCS: 36415; 73130; 80053; 84153; 85027; 87040

== ENCOUNTER 2024-07-02 11:12 | Outpatient (CLI) | payer MEDICARE, SELFPAY ==
--- NOTE | ~2024-07-02 | XR_ITS ---
Lumbosacral Spine: AP and lateral views Clinical History: Pain Findings: The normal lordotic curve is maintained. The vertebral bodies and posterior elements are i ntact. The intervertebral disc spaces are preserved. There is moderate to advanced facet arthropathy throughout the lumbar spine. The sacroiliac joints are normally outlined. Impression: Facet arthropathy, as above. Reviewed, dictated and finalized at location . 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
--- NOTE | ~2024-07-02 | XR_ITS ---
Thoracic spine: Clinical Indication: Back pain AP and lateral views were performed. COMPARISON: 05/13/2022 No fracture is seen. There is normal alignment of the vertebrae. There is moderate degenerative disc change throughout the thoracic spine, with mild kyphosis. Paravertebral soft tissues appear normal. Impression: Moderate degenerative change with associated kyphosis. Findings are similar to prior exam Reviewed, dictated and finalized at location . 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 Findings are similar to prior exam
== END 2024-07-02 11:13 | disposition home or self-care (01) ==
LOC: CHSIMG 11:14
PROVIDERS: PCP Internal Medicine; Visit Provider Nurse Practitioner Family
DX: M54.6 Pain in thoracic spine (principal); M12.88 Other specific arthropathies, not elsewhere classified, other specified site
CPT/HCPCS: 72070; 72100

== ENCOUNTER 2024-07-03 08:04 | Outpatient (RCR) | payer MEDICARE, SELFPAY ==
--- NOTE | 2024-07-03 09:09 | OPREHPOC ---
Outpatient Therapy Plan of Care This is a Multidisciplinary Plan of Care that may contain components documented by all disciplines (PT, OT, and ST.) PT Problem 1 PT Problem #1 Knowledge Deficit PT Goal 1 Goal / Goal Update The patient will be independent in a home exercise program. Target Visit 4 PT Problem 2 PT Problem #2 Pain PT Goal 1 Goal / Goal Update The patient will report no greater than 3/10 right lower thoracic pain with bed mobility and getting out of chairs. Target Visit 10 PT Problem 3 PT Problem #3 Impaired Functional Mobil PT Goal 1 Goal / Goal Update The patient will demonstrate 25% or less self perceived disability per the Back Index questionnaire. Target Visit 10 PT Problem 4 PT Problem #4 Impaired Range of Motion PT Goal 1 Goal / Goal Update The patient will demonstrate at least 15 degrees of bilateral lateral flexion in the lumbar spine without pain noted to improve functional mobility. Target Visit 10
--- NOTE | 2024-07-03 09:09 | PTOPEVAL1 ---
Assessment and note entered by Rebecca Rodriguez, PT Evaluation Information Assessment Status Evaluation ICD-10 Condition Codes (PT) M54.6 Onset 06/24/24 Subjective Information Richard Coles reports he was lifting a heavy lawnmower out of a ditch on 06/24/24 and he felt a pop in his mid to lower back. He was having a lot of pain and sharp pain so he went to his doctor on 07/02/24. He had a x-ray and steroid injection. The injection has helped decrease his pain. The doctor also prescribed a pain patch and a couple different medications. Prior to the injection, he had difficulty getting out of bed and getting out of chairs. He would also get occasional shortness of breath. He was also having difficulty turning in bed. X-rays were negative for fractures but did show degenerative disc disease in the thoracic spine and facet arthropathy in the lumbar spine. 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 He has difficulty with getting in and out of bed, rolling in bed, and getting out of a chair. He objectively demonstrates decreased and painful lumbar AROM, tension and tenderness in the right lower thoracic paraspinals, decreased bilateral hip and core strength, and decreased functional mobility. He will benefit from skilled PT to address these limitations. Plan of Care Interventions Electrical Stimulation,Hot Pack/Cold Pack,Neuro Re -education,Patient/Caregiver Educati,Therapeutic Activities,Therapeutic Exercise PT Services Indicated Yes Treatment Frequency and 2 times a week for 10 visits Duration These treatments will address the objective and functional deficits as defined above. The patient will be advanced safely and appropriately in order for the patient to progress towards his/her prior level of function. Additional exercises will be introduced and as well as a comprehensive home exercise program upon discharge, if needed, ?to ensure carryover of functional gains achieved in the clinic. This treatment plan has been reviewed and agreement upon by the patient.
--- NOTE | 2024-08-08 14:44 | OPREHPOC ---
Outpatient Therapy Plan of Care This is a Multidisciplinary Plan of Care that may contain components documented by all disciplines (PT, OT, and ST.) PT Problem 1 PT Problem #1 Knowledge Deficit PT Goal 1 Goal / Goal Update The patient will be independent in a home exercise program. Target Visit 4 Progress Met PT Problem 2 PT Problem #2 Pain PT Goal 1 Goal / Goal Update The patient will report no greater than 3/10 right lower thoracic pain with bed mobility and getting out of chairs. Target Visit 18 Progress Not Met PT Problem 3 PT Problem #3 Impaired Functional Mobility PT Goal 1 Goal / Goal Update The patient will demonstrate 25% or less self perceived disability per the Back Index questionnaire. Target Visit 18 Progress Not Met PT Problem 4 PT Problem #4 Impaired Range of Motion PT Goal 1 Goal / Goal Update The patient will demonstrate at least 15 degrees of bilateral lateral flexion in the lumbar spine without pain noted to improve functional mobility. Target Visit 18 Progress Not Met
--- NOTE | 2024-08-08 14:44 | PTOPREEVAL ---
Assessment and note entered by JT File, PT Evaluation Information Assessment Status Re-evaluation ICD-10 Condition Codes (PT) Pain in Thoracic Spine M54.6 Onset 06/24/24 Subjective Information patient reports he is doing somewhat better overall, but is a bit sore today. he continues to have pain in the middle back. a new order was sent to continue therapy from his MD on 07/23/24. patent reports lifting activities still cause pain , as well as, walking and standing. he would like to keep going with PT in hopes this will continue to help him. he reports he is compliant with HEP at home today. Reported Pain Level Pain Score 5: Self Report Assessment PT Clinical Summary mr. yousif presents to skilled PT for his 10th skilled therapy visit. he presents today with continued pain and continued deficits in rom, strength, and functional activity performance. he reports feeling somewhat better overall, but his oswestry score is essentially unchanged yet. he has orders to continued skilled PT per his MD, and given his continued deficits/lack of goal achievement, he would benefit from a continuation of care. Plan of Care Interventions Electrical Stimulation,Hot Pack/Cold Pack,Neuro Re -education,Patient/Caregiver Education,Therapeutic Activities,Therapeutic Exercise PT Services Indicated Yes Treatment Frequency and continue skilled PT 2x weekly for 8 more visits Duration These treatments will address the objective and functional deficits as defined above. The patient will be advanced safely and appropriately in order for the patient to progress towards his/her prior level of function. Additional exercises will be introduced and as well as a comprehensive home exercise program upon discharge, if needed, ?to ensure carryover of functional gains achieved in the clinic. This treatment plan has been reviewed and agreement upon by the patient.
--- NOTE | 2024-08-30 07:52 | OPREHPOC ---
Outpatient Therapy Plan of Care This is a Multidisciplinary Plan of Care that may contain components documented by all disciplines (PT, OT, and ST.) PT Problem 1 PT Problem #1 Knowledge Deficit PT Goal 1 Goal / Goal Update The patient will be independent in a home exercise program. Target Visit 4 Progress Met PT Problem 2 PT Problem #2 Pain PT Goal 1 Goal / Goal Update The patient will report no greater than 3/10 right lower thoracic pain with bed mobility and getting out of chairs. Target Visit 18 Progress Met PT Problem 3 PT Problem #3 Impaired Functional Mobility PT Goal 1 Goal / Goal Update The patient will demonstrate 25% or less self perceived disability per the Back Index questionnaire. (28%) Target Visit 18 Progress Partially Met PT Problem 4 PT Problem #4 Impaired Range of Motion PT Goal 1 Goal / Goal Update The patient will demonstrate at least 15 degrees of bilateral lateral flexion in the lumbar spine without pain noted to improve functional mobility. Target Visit 18 Progress Met
--- NOTE | 2024-08-30 07:52 | PTOPDC ---
Assessment and note entered by Rebecca Rodriguez, PT Evaluation Information Assessment Status Discharge ICD-10 Condition Codes (PT) Pain in Thoracic Spine M54.6 Onset 06/24/24 Subjective Information Richard Coles reports his back pain is improved overall but still present. He notes he can perform all daily activities but is avoiding lifting anything heavier than his small dog. He is sleeping better and can move around in bed and in and out of chairs and his vehicles without pain now. He has been performing exercises at home as well and feels comfortable continuing them independently. Reported Pain Level Pain Score 1: Self Report Assessment PT Clinical Summary Richard Coles has completed 18 skilled PT visits for thoracic back pain. He is reporting less pain overall and has been able to return to his previous ADLs and activities. He does still avoid heavy lifting. He demonstrates less tenderness, improved lumbar AROM, and improved strength. He has met 75% of his goals and will be discharged to his independent HEP. Plan of Care PT Services Indicated No
== END 2024-08-30 09:16 | disposition home or self-care (01) ==
LOC: CHSPT 08:04
PROVIDERS: PCP Nurse Practitioner Family; Visit Provider Nurse Practitioner Family
DX: M54.6 Pain in thoracic spine (principal)
CPT/HCPCS: 97014; 97110; 97140; 97161; 97530; G0283

== ENCOUNTER 2024-09-20 06:53 | Outpatient (CLI) | payer MEDICARE, OTHER, SELFPAY ==
--- NOTE | ~2024-09-20 | MR_ITS ---
MRI of the thoracic spine Clinical History: Injury, pain Technique: Axial T2-weighted and gradient images, and sagittal T1-weighted, T2-weighted, and STIR porfirio ges were acquired. Findings: There is acute, mild to moderate compression fracture deformity of T11, with superior plate loss of height, hypointense fracture line, and surrounding marrow edema. No other fracture or sublux ation seen in the thoracic spine. No other significant bone marrow signal abnormality seen. Probable intraosseous hemangioma at T8. No significant disc bulge or herniation seen at any thoracic level. No spinal canal stenosis or cord compression evident. Probable mild/moderate right neural foraminal narrowing at T10-T11 related to mi ld retropulsion of T11.. No abnormal signal seen in spinal cord. Paravertebral soft tissues are unremarkable. Impression: Acute T11 compression fracture, as above. Mild to moderate right neural foraminal narrowing at T10-T11. Reviewed, dictated and finalized at [facility]. D ANIMAL VETERINARIAN Impression: Acute T11 compression fracture, as above. Mild to moderate right neural foraminal narrowing at T10-T11.
--- NOTE | ~2024-09-20 | MR_ITS ---
MRI of the lumbar spine Clinical History: Back pain Technique: Axial T2-weighted images, and sagittal T1-weighted, T2-weighted, and T2 fat-sat images wer e acquired. COMPARISON: 06/03/2022 Findings: There is no acute fracture or subluxation of the lumbar spine. Vertebral bodies maintain no rmal height and alignment. No suspicious bone marrow signal abnormality seen in the lumbar spine. At L1-L2, there is minimal disc bulge with moderate facet arthropathy. No central canal stenosis or n eural foraminal narrowing. At L2-L3, there is minimal disc bulge with moderate facet arthropathy. No central canal stenosis or n eural foraminal narrowing. At L3-L4, there is diffuse disc bulge with moderate to advanced facet arthropathy. There is mild cent ral canal stenosis. There is mild bilateral neural foraminal narrowing. At L4-L5, there is mild disc bulge with advanced facet arthropathy. There is minimal central canal st enosis. There is minimal right neural foraminal narrowing. Left neural foramen also probably minimall y narrowed. At L5-S1, there is mild disc bulge and mild facet arthropathy. No central canal stenosis. No definite neural foraminal narrowing. Paravertebral soft tissues are unremarkable. Impression: Mild degenerative spondylosis overall, as above. Reviewed, dictated and final[place] at [facility] OS ADMINISTRATOR Impression: Mild degenerative spondylosis overall, as above.
--- OUTSIDE RECORDS SUMMARY | 2024-09-20 06:57 | XMS_ITS | Clinical Summary ---
Author Organization [facility] Address [facility] access hospital[address] [place] [address] Care Team Providers Care Salesperson Hearing Aids Name Role Phone Vanita Manzo MD Primary Care Provider [phone] Terese Soriano MD Unavailable Allergies Active Allergy Reactions Criticality Noted Date Comments Penicillins Rash Low 05/17/2016 Medications aspirin 81 MG tabletIndicati ons:anticoagul ant Take 1 tablet (81 mg total) by mouth daily. Indications: anticoagulant 5 Active LORazepam 0.5 MG tabletIndicati ons:ANXIETY Take 1 tablet (0.5 mg total) by mouth 2 (two) times a day. Indications: ANXIETY 0 Active omeprazole 40 MG capsuleIndicat ions:GERD Take 1 tablet by mouth daily. Indications: GERD 5 Active lamotrigine 100 MG tabletIndicati ons:DEPRESSION Take 1 tablet (100 mg total) by mouth 2 (two) times daily. Indications: DEPRESSION 7 Active traZODone 150 MG tabletIndicati ons:SLEEP Take 1 tablet (150 mg total) by mouth nightly at bedtime. Indications: SLEEP 2 7 Active tranylcypromin e 10 MG Tab tabletIndicati ons:DEPRESSION Take 1 tablet (10 mg total) by mouth daily. Indications: DEPRESSION 2 Active vitamin B-12 (CYANOCOBALAMI N) (CYANOCOBALAMI N) 1000 mcg tabletIndicati ons:SUPPLEMENT Take 1 tablet (1,000 mcg total) by mouth daily. Indications: SUPPLEMENT Active hydrOXYzine (VISTARIL) 50 MG capsule Take 1 capsule (50 mg total) by mouth nightly at bedtime. 3 Active ARIPiprazole (ABILIFY) 10 MG tabletIndicati ons:bipolar Take 1 tablet (10 mg total) by mouth 2 (two) times a week. Indications: bipolar On Tuesday and 3 Active famotidine (PEPCID) 20 MG tabletIndicati ons:GERD Take 2 tablets (40 mg total) by mouth nightly at bedtime. Indications: GERD 3 Active fludrocortison e (FLORINEF) 0.1 MG tablet TAKE 2 TABLETS BY MOUTH IN THE MORNING AND TAKE 1 TABLET BY MOUTH IN THE EVENING 90 tablet 6 4 Active Additional Information Patient taking differently: 0.1 mg Oral 2 times daily, TAKE 2 TABLETS BY MOUTH IN THE MORNING AND TAKE 1 TABLET BY MOUTH IN THE EVENING,Indications: HYPOTENSION, Reported on 09/22/2023 prednisoLONE acetate (PRED FORTE) 1 % ophthalmic suspensionIndi cations:post op surgery drop Place 1 drop into the left eye see administration instructions. Indications: post op surgery drop Active atorvastatin (LIPITOR) 20 MG tablet take 1 tablet by mouth daily at bedtime 30 tablet 6 4 Active Active Problems Problem Noted Date Diagnosed Date NSTEMI (non-ST elevated myoc ardial infarction) ([facility]) 11/12/2022 SOB (shortness of breath) 09/14/2022 Hyperlipidemia 12/19/2018 Anxiety 05/31/2018 Heart burn 05/31/2018 Migraines 05/31/2018 Wears hearing aid in both ears 05/31/2018 Altered bowel habits 01/02/2018 Overview (12/18/2018): Last Assessment & Plan: 1. Suspect functional. Trial of Align probiotic for 6-8 weeks. Consider adding supplemental fiber. 2. FIT as below. Hx of adenomatous colonic polyps 01/02/2018 Overview (12/18/2018): Last Assessment & Plan: 1. FIT. 2. Surveillance colonoscopy due 11/2021. Bipolar disorder ([facility]) 07/17/2017 Coronary artery disease invo lving tejon coronary artery of tejon heart without angina pectoris Depression GERD (gastroesophageal reflux disease) Hypotension LV dysfunction Sleep apnea Orthostasis Overview (09/06/2017): monitored by Dr. Manzo Resolved Problems Problem Noted Date Diagnosed Date Resolved Date Wears glasses 05/31/2018 04/11/2020 Encounter for preventive health examination 07/14/2014 04/11/2020 Family History Medical History Relation Comments Alcohol Abuse Father Depression Father Arthritis Mother Cancer Mother Depression Mother Heart Attack Mother Liver Disease Mother Relation Status Comments Father Mother [place] at 49 Social History Tobacco Use Types Packs/Day Years Used Date Smoking Tobacco: Never Smokeless Tobacco: Never Tobacco Cessation:Counseling Given: Not Answered Alcohol Use Standard Drinks/Week Comments No 0 (1 standard drink = 0.6 oz pur e alcohol) Humiliation, Afraid, Rape, and Kick questionnair e Answer Date Recorded Within the last year, have y ou been afraid of your partner or ex-partner? No 11/14/2022 Within the last year, have y ou been humiliated or emotionally abused in other ways by your partner or ex-partner? No Within the last year, have y ou been kicked, hit, slapped, or otherwise physically hurt by your partner or ex-partner? No 11/14/2022 Within the last year, have y ou been raped or forced to have any kind of sexual activity by your partner or ex-partner? No 11/14/2022 Overall Financial Resource Strain (CARDIA) Answe r Date Recorded How hard is it for you to pa y for the very basics like food, housing, medical care, and heating? Not hard at all 11/14/2022 Hunger Vital Sign Answer Date Recorded Within the past 12 months, y ou worried that your food would run out before you got the money to buy more. Never true 11/15/19 23 Within the past 12 months, t he food you bought just didn't last and you didn't have money to get more. Never true 11/14/2022 PRAPARE - Transportation Answer Date Re corded In the past 12 months, has l ack of transportation kept you from medical appointments or from getting medications? No 10/30 In the past 12 months, has l ack of transportation kept you from meetings, work, or from getting things needed for daily living? No 11/14/2022 Housing Stability Vital Sign Answer Sundar e Recorded In the last 12 months, was t here a time when you were not able to pay the mortgage or rent on time? No 11/14/2022 In the last 12 months, how many places have you lived? 1 11/14/2022 In the last 12 months, was t here a time when you did not have a steady place to sleep or slept in a residential (including now)? No 11/14/2022 Sex and Gender Information Value Date Recorded Sex Assigned at Not on file Legal Sex Male 11:06 PM CDT Gender Identity Not on file Sexual Orientation Not on file Occupation Industry Job Start Date Job End Date unemployed Not on file Not on file Not on file Not on file Not on file Not on file Not on file Last Filed Vital Signs Vital Sign Reading Time Taken Comments Blood Pressure 157/71 03/20/2024 6:20 AM CDT Pulse 66 03/20/2024 6:01 AM CDT Temperature 36.4 C (97.5 F) 03/20/2024 6:01 AM CDT Respiratory Rate 16 03/20/2024 6:01 AM CDT Oxygen Saturation 100% 03/20/2024 6:20 AM CDT Inhaled Oxygen Concentration - - Weight 88.5 kg (195 lb) 03/20/2024 6:04 AM CDT Height 180.3 cm (5' 11 ) 03/20/2024 6:04 AM CDT Body Mass Index 27.2 03/20/2024 6:04 AM CDT Plan of Treatment Health Maintenance Due Date Last Done Comments Colorectal Cancer Screening Colonoscopy (10 Years) 1955 Hepatitis C 01/06/1972 RSV Immunization or 60+ Years (1 - Risk 60-74 years 1-dose series) 2014 Pneumococcal Vaccine: 65+ Years (2 of 2 - PPSV23 or PCV20) 06/27/2015 05/02/2015 Annual Medicare Wellness Visit 2019 ASCVD LDL 11/13/2023 11/12/2022, 02/0 11/2019, 09/28/2017, Additional history exists COVID-19 Vaccine ( season) 2024 11/18/2021, 06/08/2021, 10/10/2020, Additional history exists Influenza Adult (#1) 2024 04/29/2021, 04/09/2020, 07/23/2019, Additional history exists DTaP, Tdap and Td Vaccines (2 - Td or Tdap) 05/20/2024 05/20/2014 Zoster Vaccines Completed 12/01/2021, 09/22/2021 Meningococcal B Vaccine Aged Out No l onger eligible based on patient's age to complete this topic Meningococcal Vaccine Aged Out No yossi seth eligible based on patient's age to complete this topic RSV Immunizations Under 20 Months Aged Out No longer eligible based on patient's age to complete this topic Goals Goal Patient Goal Type Associated Problems Recent Progress Patient-Stated? Author Safety Patient/family will have appropriate support at home upon discharge Lifestyle No Mona Nascimento RN Medical Devices Implanted Type Area Dairy Inspector Device Identifier Shelf Expiration Date Model / Serial / Lot Iol Shimon [id number] - [id number] Implanted:Qty: 1 on 09/27/2023 by Param Shaffer Jr., MD at [facility] Lens Right: Eye [employer] [id number] 03/25/2027 [id number] / [id number] / NA Description:Dr Edmund martinez m IOL Iol Shimon [id number] - [id number] Implanted:Qty: 1 on 10/11/2023 by Param Shaffer Jr., MD at [facility] Lens Left: Eye [employer] [id number] 05/03/2027 [id number] / [id number] / N/A Description:Confirmed with junoir shaffer and epic Procedures Procedure Name Priority Date/Time Associated Diagnosis Comments LIPID PANEL Routine 11/12/2022 12:23 AM CDT COLONOSCOPY Routine IMMIGRATION LAWYER from Last 3 Months or Most Recently Relevant to Health Maintenance Results * LIPID PANEL (11/12/2022 12:23 AM CDT) CHOLESTEROL 110 MG/DL 11/12/2022 1:10 AM CDT [facility] Comment:DESIRABLE: <200 TRIGLYCERIDES 38 MG/DL 11/12/2022 1:10 AM CDT [facility] Comment:<150 NORMAL HDL 49 >39 MG/DL 11/12/2022 1:10 AM CDT [facility] LDL (CALCULATED) 53 MG/DL 11/13/19 1:10 AM CDT [facility] Comment:<100 OPTIMAL VLDL CALCULATION 8 MG/DL 11/13/19 1:10 AM CDT [facility] Comment:REFERENCE RANGE NOT ESTABLISHED CHOL/HDL RATIO 2.2 11/12/2022 1:10 AM CDT [facility] Comment:REFERENCE RANGE NOT ESTABLISHED LDL/HDL 1.1 11/12/2022 1:10 AM CDT [facility] Comment:REFERENCE RANGE NOT ESTABLISHED NON HDL CHOLESTEROL 61 MG/DL 11/12/2022 1:10 AM CDT [facility] Comment:REFERENCE RANGE NOT ESTABLISHED 11/12/2022 12:2 3 AM CDT us Randy Donohue MD LABORATORY Final Result [facility] [address] [place] [address], [id number] * Colonoscopy ( IMMIGRATION LAWYER) Narrative [facility] TO EPIC CONVERSION - 05/31/2018 12:00 AM CDT Documented hx of procedure Procedure Note Zeus Holm MD - 06/30/2018 Documented hx of procedure us Zeus Gonzalez Md, MD GI PROCEDURE ORDERABLES Final Result [facility] TO EPIC CONVERSION from Last 3 Months or Most Recently Relevant to Health Maintenance Insurance [employer] Advance Directives * Full Code (Latest Code Status on File) Date Activated Date Inactivated Comments 10/11/2023 8:37 AM 10/11/2023 10:59 AM * Full Code Date Activated Date Inactivated Comments 09/27/2023 10:51 AM 09/27/2023 1:59 PM * Full Code Date Activated Date Inactivated Comments 11/12/2022 12:08 AM 11/17/2022 2:28 PM Care Teams Salesperson Hearing Aids Relationship Specialty Start Date End Date Vanita Manzo MD [address] [place] [address] PCP - General INTERNAL MEDICINE 06/01/16 Terese Soriano MD [address] [place] [address] Consulting Physician CARDIOVASCULAR DISEASE 11/17/23
--- OUTSIDE RECORDS SUMMARY | 2024-09-20 06:57 | XMS_ITS | Encounter Summary ---
Author Organization [facility] Address [facility] [place] [address] Care Team Providers Care Agricultural Loan Officer Name Role Phone Vanita Manzo MD Primary Care Provider [phone] Lam Montanez MD Unavailable Unavailabl e Terese Soriano MD Unavailable Encounter Details Date Type Department Care Team (Late st Contact Info) Description 03/31/2017 Abstract [facility] [address] [place] [phone] Lam Montanez MD Social History Tobacco Use Types Packs/Day Years Used Date Smoking Tobacco: Never Sex and Gender Information Value Date Recorded Sex Assigned at Not on file Legal Sex Male 11:06 PM CDT Gender Identity Not on file Sexual Orientation Not on file Occupation Industry Job Start Date Job End Date unemployed Not on file Not on file Not on file documented as of this encounter Plan of Treatment Not on file documented as of this encounter Visit Diagnoses Not on filedocumented in this encounter Care Teams Agricultural Loan Officer Relationship Specialty Start Date End Date Vanita Manzo MD [address] [place] [address] PCP - General INTERNAL MEDICINE 06/01/16 Lam Montanez MD [address] [place] [address] [place] Divorce Lawyer CARDIOVASCULAR DISEASE 06/01/16 11/16/23 Terese Soriano MD [address] [place] [address] Consulting Physician CARDIOVASCULAR DISEASE 11/17/23 documented as of this encounter
--- OUTSIDE RECORDS SUMMARY | 2024-09-20 06:57 | XMS_ITS | Encounter Summary ---
Author Organization [facility] Address [address] [place] [address] Care Team Providers Care Chief Inspector Name Role Phone Vanita Manzo MD Primary Care Provider [phone] Lam Montanez MD Unavailable Unavailabl e Terese Soriano MD Unavailable Encounter Details Date Type Department Care Team (Late st Contact Info) Description 11/18/2022 Hospital Follow-up Call [facility] [address] [place] [address] Yasmeen Trejo, RN Social History Tobacco Use Types Packs/Day Years Used Date Smoking Tobacco: Never Smokeless Tobacco: Never Alcohol Use Standard Drinks/Week Comments No 0 [...] place to sleep or slept in a [place] facility (including now)? No 11/14/2022 Sex and Gender Information Value Date Recorded Sex Assigned at Not on file Legal Sex Male 11:06 PM CDT Gender Identity Not on file Sexual Orientation Not on file Occupation Industry Job Start Date Job End Date unemployed Not on file Not on file Not on file Not on file Not on file Not on file Not on file COVID-19 Exposure Response Date Recorded In the last 10 days, have yo u been in contact with someone who was confirmed or suspected to have Coronavirus/COVID-19? No / Unsure 11/12/2022 4:47 PM CDT documented as of this encounter Functional Status * Are you deaf or do you have serious difficulty hearing Answer Date of Assessment Author Status No 11/11/2022 11:30 PM CDT Sabrina Salgado RN A ctive * Are you blind or do you have serious difficulty seeing, even when wearing glasses? Answer Date of Assessment Author Status No 11/11/2022 11:30 PM CDT Sabrina Salgado RN A ctive * Do you have serious difficulty walking or climbing stairs? Answer Date of Assessment Author Status No 11/11/2022 11:30 PM Sabrina Calderón RN A ctive * Do you have difficulty dressing or bathing? Answer Date of Assessment Author Status No 11/11/2022 11:30 PM Sabrina Calderón RN A ctive * Because of a physical, mental, or emotional condition, do you have difficulty doing errands alone such as visiting a doctor's office or shopping? Answer Date of Assessment Author Status No 11/11/2022 11:30 PM Sabrina Calderón RN A ctive documented as of this encounter Mental Status * Because of a physical, mental, or emotional condition, do you have serious difficulty concentrating, remembering, or making decisions? Answer Entry Date Author Status No 11/11/2022 11:30 PM Sabrina Calderón RN A ctive documented in this encounter Plan of Treatment Not on file documented as of this encounter Goals Goal Patient Goal Type Associated Problems Recent Progress Patient-Stated? Author Safety Patient/family will have appropriate support at home upon discharge Lifestyle No Mona Nascimento RN documented as of this encounter Visit Diagnoses Not on filedocumented in this encounter Care Teams Chief Inspector Relationship Specialty Start Date End Date Vanita Manzo MD [address] [place] [phone] PCP - General INTERNAL MEDICINE 06/01/16 Lam Montanez MD [address] [place] [phone] [employer]vel Supervisor [employer] CARDIOVASCULAR DISEASE 06/01/16 11/16/23 Terese Soriano MD [address] [place] [address] Consulting Physician CARDIOVASCULAR DISEASE 11/17/23 documented as of this encounter
--- OUTSIDE RECORDS SUMMARY | 2024-09-20 06:57 | XMS_ITS | Encounter Summary ---
Author Organization [facility] Address [facility] [place] [address] Care Team Providers Care Newspaper Photo Editor Name Role Phone Vanita Manzo MD Primary Care Provider [phone] Lam Montanez MD Unavailable Unavailabl e Terese Soriano MD Unavailable Encounter Details Date Type Department Care Team (Late st Contact Info) Description 10/06/2017 Abstract [facility] [address] [place] [phone] Lam Montanez MD Social History Tobacco Use Types Packs/Day Years Used Date Smoking Tobacco: Never Smokeless Tobacco: Never Alcohol Use Standard Drinks/Week Comments No 0 (1 standard drink = 0.6 oz pur e alcohol) Sex and Gender Information Value Date Recorded Sex Assigned at Not on file Legal Sex Male 11:06 PM CDT Gender Identity Not on file Sexual Orientation Not on file Occupation Industry Job Start Date Job End Date unemployed Not on file Not on file Not on file documented as of this encounter Plan of Treatment Not on file documented as of this encounter Procedures Procedure Name Priority Date/Time Associated Diagnosis Comments LIPID PANEL Routine 09/28/2017 documented in this encounter Results * LIPID PANEL (09/28/2017) CHOLESTEROL 161 HDL 44 TRIGLYCERIDES 82 CHOL/HDL RATIO 3.7 LDL (CALCULATED) 100 09/28/2017 us Doc [facility] Abstract LABORATORY Final Result documented in this encounter Visit Diagnoses Not on filedocumented in this encounter Care Teams Newspaper Photo Editor Relationship Specialty Start Date End Date Vanita Manzo MD [address] [place] [phone] PCP - General INTERNAL MEDICINE 06/01/16 Lam Montanez MD [address] [place] [address] [place] [employer] Continuity Director CARDIOVASCULAR DISEASE 06/01/16 11/16/23 Terese Soriano MD [address] [place] [address] Consulting Physician CARDIOVASCULAR DISEASE 11/17/23 documented as of this encounter
--- OUTSIDE RECORDS SUMMARY | 2024-09-20 06:57 | XMS_ITS | Encounter Summary ---
Author Organization [facility] Address [facility] [place] [address] Care Team Providers Care Behavioral Health Associate Name Role Phone Vanita Manzo MD Primary Care Provider [phone] Lam Montanez MD Unavailable Unavailabl e Terese Soriano MD Unavailable Encounter Details Date Type Department Care Team (Late st Contact Info) Description 01/18/2018 [facility] [address] [place] [phone] Lam Montanez MD Social History Tobacco Use [...] on filedocumented in this encounter Care Teams Behavioral Health Associate Relationship Specialty Start Date End Date Vanita Manzo MD [address] [place] [address] PCP - General INTERNAL MEDICINE 06/01/16 Lam Montanez MD [address] [place] [address] [place] Pipeline Superintendent Division CARDIOVASCULAR DISEASE 06/01/16 11/16/23 Terese Soriano MD [address] [place] [address] Consulting Physician CARDIOVASCULAR DISEASE 11/17/23 documented as of this encounter
--- OUTSIDE RECORDS SUMMARY | 2024-09-20 06:57 | XMS_ITS | Encounter Summary ---
Author Organization [facility] Address [facility] [place] [address] Care Team Providers Care Aerosol Line Operator Name Role Phone Vanita Manzo MD Primary Care Provider [phone] Lam Montanez MD Unavailable Unavailabl e Terese Soriano MD Unavailable Encounter Details Date Type Department Care Team (Late st Contact Info) Description 04/06/2017 Abstract [facility] [address] [place] [phone] Lam Montanez MD Social History Tobacco Use [...] on filedocumented in this encounter Care Teams Aerosol Line Operator Relationship Specialty Start Date End Date Vanita Manzo MD [address] [place] [address] PCP - General INTERNAL MEDICINE 06/01/16 Lam Montanez MD [address] [place] [address] [place] [employer] Operator CARDIOVASCULAR DISEASE 06/01/16 11/16/23 Terese Soriano MD [address] [place] [address] Consulting Physician CARDIOVASCULAR DISEASE 11/17/23 documented as of this encounter
--- OUTSIDE RECORDS SUMMARY | 2024-09-20 06:57 | XMS_ITS | Encounter Summary ---
Author Organization [facility] Address [facility] [place] [address] Care Team Providers Care House Rn Name Role Phone Vanita Manzo MD Primary Care Provider [phone] Lam Montanez MD Unavailable Unavailabl e Terese Soriano MD Unavailable Encounter Details Date Type Department Care Team ([facility] st Contact Info) Description 06/07/2016 Abstract [facility] [address] [place] [phone] Lam Montanez MD Social History Tobacco Use [...] Date/Time Associated Diagnosis Comments LIPID PANEL Routine 06/05/2016 documented in this encounter Results * LIPID PANEL (06/05/2016) CHOLESTEROL 188 HDL 47 TRIGLYCERIDES 60 NON HDL CHOLESTEROL 141 CHOL/HDL RATIO 4.0 LDL (CALCULATED) 129 06/05/2016 us Doc [facility] Abstract LABORATORY Final Result documented in this encounter Visit Diagnoses Not on filedocumented in this encounter Care Teams House Rn Relationship Specialty Start Date End Date Vanita Manzo MD [address] [place] [phone] PCP - General INTERNAL MEDICINE 06/01/16 Lam Montanez MD [address] [place] [address] [place] Corporate Giving Manager CARDIOVASCULAR DISEASE 06/01/16 11/16/23 Terese Soriano MD [address] [place] [address] Consulting Physician CARDIOVASCULAR DISEASE 11/17/23 documented as of this encounter
--- OUTSIDE RECORDS SUMMARY | 2024-09-20 06:57 | XMS_ITS | Encounter Summary ---
Author Organization [facility] Address [address] [place] [address] Care Team Providers Care Biomass Production Manager Name Role Phone Vanita Manzo MD Primary Care Provider [phone] Lam Montanez MD Unavailable Unavailabl e Terese Soriano MD Unavailable Encounter Details Date Type Department Care Team (Latest Contact Info) Description 11/18/2022 Spotlight Ticket Management Message Enc [facility] Care Unit [address] [place] [address] [place] Provider discharge follow up call Social History Tobacco Use Types Packs/Day Years [...] place to sleep or slept in a halfway (including now)? No 11/14/2022 Sex and Gender [...] on filedocumented in this encounter Care Teams Biomass Production Manager Relationship Specialty Start Date End Date Vanita Manzo MD [address] [place] [phone] PCP - General INTERNAL MEDICINE 06/01/16 Lam Montanez MD [address] [place] [phone] [place] Flour Distributor CARDIOVASCULAR DISEASE 06/01/16 11/16/23 Terese Soriano MD [address] [place] [address] Consulting Physician CARDIOVASCULAR DISEASE 11/17/23 documented as of this encounter
--- OUTSIDE RECORDS SUMMARY | 2024-09-20 06:57 | XMS_ITS | Encounter Summary ---
Author Organization [facility] Address [facility] [place] [address] Care Team Providers Care Broker Assistant Name Role Phone Vanita Manzo MD Primary Care Provider [phone] Lam Montanez MD Unavailable Unavailabl e Terese Soriano MD Unavailable Encounter Details Date Type Department Care Team (Late st Contact Info) Description 01/06/2019 Abstract [facility] [address] [place] [address] , Generic ConversionMD Social History Tobacco Use Types Packs/Day Years [...] on filedocumented in this encounter Care Teams Broker Assistant Relationship Specialty Start Date End Date Vanita Manzo MD [address] [place] [address] PCP - General INTERNAL MEDICINE 06/01/16 Lam Montanez MD [address] [place] [address] [employer] Classroom Teacher CARDIOVASCULAR DISEASE 06/01/16 11/16/23 Terese Soriano MD [address] [place] [address] Consulting Physician CARDIOVASCULAR DISEASE 11/17/23 documented as of this encounter
== END 2024-09-20 06:54 | disposition home or self-care (01) ==
LOC: CHSIMG 06:55
PROVIDERS: PCP Internal Medicine; Visit Provider Internal Medicine
DX: S29.9XXA Unspecified injury of thorax, initial encounter (principal); S22.088A Other fracture of T11-T12 vertebra, initial encounter for closed fracture; M48.04 Spinal stenosis, thoracic region
CPT/HCPCS: 72146; 72148

== ENCOUNTER 2024-09-28 14:22 | Outpatient (CLI) | payer MEDICARE, OTHER, SELFPAY | END 2024-09-28 14:23 | disposition home or self-care (01) | PROVIDERS: PCP Internal Medicine; Visit Provider Internal Medicine | DX: M85.89 Other specified disorders of bone density and structure, multiple sites (principal) | CPT/HCPCS: 77080 ==

== ENCOUNTER 2024-10-23 08:24 | Outpatient (CLI) | payer MEDICARE, OTHER, SELFPAY ==
[2024-10-23 08:31] VITALS: BMI 26.5
[2024-10-23 08:37] VITALS: BP 147/77; PULSE 80; RESP 16; TEMP 36.5; O2SAT 98
--- OUTSIDE RECORDS SUMMARY | 2024-10-23 08:48 | XMS_ITS | Encounter Summary ---
Author Organization [facility] Address [facility] [place] [address] Care Team Providers Care Quality Systems Technician Name Role Phone Vanita Manzo MD Primary Care Provider [phone] Lam Montanez MD Unavailable Unavailabl e Terese Soriano MD Unavailable Encounter Details Date Type Department Care Team (Late st Contact Info) Description 03/31/2017 Abstract [facility] [address] [place] [phone] Lam Montanez MD Social History Tobacco Use [...] on filedocumented in this encounter Care Teams Quality Systems Technician Relationship Specialty Start Date End Date Vanita Manzo MD [address] [place] [address] PCP - General INTERNAL MEDICINE 06/01/16 Lam Montanez MD [address] [place] [address] [place] Director Audience Marketing CARDIOVASCULAR DISEASE 06/01/16 11/16/23 Terese Soriano MD [address] [place] [address] Consulting Physician CARDIOVASCULAR DISEASE 11/17/23 documented as of this encounter
--- OUTSIDE RECORDS SUMMARY | 2024-10-23 08:48 | XMS_ITS | Encounter Summary ---
Author Organization [facility] Address [facility] [place] [address] Care Team Providers Care Tenter Feeder Name Role Phone Vanita Manzo MD Primary Care Provider [phone] Lam Montanez MD Unavailable Unavailabl e Terese Soriano MD Unavailable Encounter Details Date Type Department Care Team (Late st Contact Info) Description 01/18/2018 Abstract [facility] [address] [place] [address] Lam Montanez MD Social History Tobacco Use [...] on filedocumented in this encounter Care Teams Tenter Feeder Relationship Specialty Start Date End Date Vanita Manzo MD [address] [place] [address] PCP - General INTERNAL MEDICINE 06/01/16 Lam Montanez MD [address] [place] [address] [place] Kickboxing Instructor CARDIOVASCULAR DISEASE 06/01/16 11/16/23 Terese Soriano MD [address] [place] [address] Consulting Physician CARDIOVASCULAR DISEASE 11/17/23 documented as of this encounter
--- OUTSIDE RECORDS SUMMARY | 2024-10-23 08:48 | XMS_ITS | Encounter Summary ---
Author Organization [facility] Address [facility] [place] [address] Care Team Providers Care Hard Tile Setter Apprentice Name Role Phone Vanita Manzo MD Primary Care Provider [phone] Lam Montanez MD Unavailable Unavailabl e Terese Soriano MD Unavailable Encounter Details Date Type Department Care Team (Late st Contact Info) Description 10/06/2017 Abstract [facility] [address] [place] [phone] Lam Montanez MD Social History Tobacco Use [...] on filedocumented in this encounter Care Teams Hard Tile Setter Apprentice Relationship Specialty Start Date End Date Vanita Manzo MD [address] [place] [address] PCP - General INTERNAL MEDICINE 06/01/16 Lam Montanez MD [address] [place] [address] [place] Assistant CARDIOVASCULAR DISEASE 06/01/16 11/16/23 Terese Soriano MD [address] [place] [address] Consulting Physician CARDIOVASCULAR DISEASE 11/17/23 documented as of this encounter
--- OUTSIDE RECORDS SUMMARY | 2024-10-23 08:48 | XMS_ITS | Encounter Summary ---
Author Organization [facility] Address [facility] [place] [address] Care Team Providers Care Room Worker Name Role Phone Vanita Manzo MD Primary Care Provider [phone] Lam Montanez MD Unavailable Unavailabl e Terese Soriano MD Unavailable Encounter Details Date Type Department Care Team (Late st Contact Info) Description 01/06/2019 Abstract [facility] [address] [place] [address] , Generic ConversionMD Social History [...] on filedocumented in this encounter Care Teams Room Worker Relationship Specialty Start Date End Date Vanita Manzo MD [address] [place] [address] PCP - General INTERNAL MEDICINE 06/01/16 Lam Montanez MD [address] [place] [address] [place] Screen Printing Loader Unloader CARDIOVASCULAR DISEASE 06/01/16 11/16/23 Terese Soriano MD [address] [place] [address] Consulting Physician CARDIOVASCULAR DISEASE 11/17/23 documented as of this encounter
--- OUTSIDE RECORDS SUMMARY | 2024-10-23 08:48 | XMS_ITS | Encounter Summary ---
Author Organization [facility] Address [facility] [place] [address] Care Team Providers Care Boot Turner Name Role Phone Vanita Manzo MD Primary Care Provider [phone] Lam Montanez MD Unavailable Unavailabl e Terese Soriano MD Unavailable Encounter Details Date Type Department Care Team ([facility] st Contact Info) Description 06/07/2016 Abstract [facility] [address] [place] [phone] aLm Montanez MD Social History Tobacco Use Types [...] on filedocumented in this encounter Care Teams Boot Turner Relationship Specialty Start Date End Date Vanita Manzo MD [address] [place] [address] PCP - General INTERNAL MEDICINE 06/01/16 Lam Montanez MD [address] [place] [address] [place] Product Management Consultant CARDIOVASCULAR DISEASE 06/01/16 11/16/23 Terese Soriano MD [address] [place] [address] Consulting Physician CARDIOVASCULAR DISEASE 11/17/23 documented as of this encounter
--- OUTSIDE RECORDS SUMMARY | 2024-10-23 08:48 | XMS_ITS | Clinical Summary ---
Author Organization [facility] Address Critical access hospital1 [place] [address] Care Team Providers Care Visitor Services Coordinator Name Role Phone Vanita Manzo MD Primary Care Provider [phone] Terese Soriano MD Unavailable Allergies Active Allergy [...] Date NSTEMI (non-ST elevated myoc ardial infarction) ([facility]) 11/12/2022 SOB (shortness of breath) 09/14/2022 Hyperlipidemia [...] 2. Surveillance colonoscopy due 11/2021. Bipolar disorder ([facility]) 07/17/2017 Coronary artery disease invo lving sokaogon coronary artery of sokaogon heart without angina pectoris Depression GERD (gastroesophageal [...] Disease Mother Relation Status Comments Father Mother [place] at 49 Social History Tobacco Use Types [...] place to sleep or slept in a long term (including now)? No 11/14/2022 Sex and Gender [...] Nascimento RN Medical Devices Implanted Type Area Manager Furniture Device Identifier Shelf Expiration Date Model / Serial / Lot Iol Shimon [id number] - [id number] Implanted:Qty: 1 on 09/27/2023 by Paarm Shaffer Jr., MD at [facility] Lens Right: Eye [employer] [id number] 03/25/2027 [id number] / [id number] / NA Description:Dr Edmund martinez m IOL Iol Shimon [id number] - [id number] Implanted:Qty: 1 on 10/11/2023 by Param Shaffer Jr., MD at [facility] Lens Left: Eye [employer] [id number] 05/03/2027 [id number] / [id number] / N/A Description:Confirmed with junior shaffer and epic Procedures Procedure Name Priority Date/Time Associated Diagnosis Comments LIPID PANEL Routine 11/12/2022 12:23 AM CDT COLONOSCOPY Routine SECURITY SYSTEM INSTALLER from Last 3 Months or Most Recently Relevant to Health Maintenance Results * LIPID PANEL (11/12/2022 12:23 AM CDT) CHOLESTEROL 110 MG/DL 11/12/2022 1:10 AM CDT [facility] Comment:DESIRABLE: <200 TRIGLYCERIDES 38 MG/DL 11/12/2022 1:10 AM CDT [facility] Comment:<150 NORMAL HDL 49 >39 MG/DL 11/12/2022 1:10 AM CDT [facility] LDL (CALCULATED) 53 MG/DL 11/13/19 1:10 AM CDT [facility] Comment:<100 OPTIMAL VLDL CALCULATION 8 MG/DL 11/13/19 1:10 AM CDT [facility] Comment:REFERENCE RANGE NOT ESTABLISHED CHOL/HDL RATIO 2.2 11/12/2022 1:10 AM CDT [facility] Comment:REFERENCE RANGE NOT ESTABLISHED LDL/HDL 1.1 11/12/2022 1:10 AM CDT [facility] Comment:REFERENCE RANGE NOT ESTABLISHED NON HDL CHOLESTEROL 61 MG/DL 11/12/2022 1:10 AM CDT [facility] Comment:REFERENCE RANGE NOT ESTABLISHED 11/12/2022 12:2 3 AM CDT us Randy Donohue MD LABORATORY Final Result [facility] [address] [place] [address], [id number] * Colonoscopy ( SECURITY SYSTEM INSTALLER) Narrative [facility] TO EPIC CONVERSION - 05/31/2018 [...] 12:08 AM 11/17/2022 2:28 PM Care Teams Visitor Services Coordinator Relationship Specialty Start Date End Date Vanita Manzo MD [address] [place] [address] PCP - General INTERNAL MEDICINE 06/01/16 Terese Soriano MD [address] [place] [address] Consulting Physician CARDIOVASCULAR DISEASE 11/17/23
--- OUTSIDE RECORDS SUMMARY | 2024-10-23 08:48 | XMS_ITS | Encounter Summary ---
Author Organization [facility] Address [facility] [place] [address] Care Team Providers Care Social Professionals Name Role Phone Vanita Manzo MD Primary Care Provider [phone] Lam Montanez MD Unavailable Unavailabl e Terese Soriano MD Unavailable Encounter Details Date Type Department Care Team (Late st Contact Info) Description 04/06/2017 Abstract [facility] [address] [place] [address] Lam Montanez MD Social History Tobacco Use [...] on filedocumented in this encounter Care Teams Social Professionals Relationship Specialty Start Date End Date Vanita Manzo MD [address] [place] [address] PCP - General INTERNAL MEDICINE 06/01/16 Lam Montanez MD [address] [place] [address] [place] [employer] Design Engineer CARDIOVASCULAR DISEASE 06/01/16 11/16/23 Terese Soriano MD [address] [place] [address] Consulting Physician CARDIOVASCULAR DISEASE 11/17/23 documented as of this encounter
--- OUTSIDE RECORDS SUMMARY | 2024-10-23 08:49 | XMS_ITS | Encounter Summary ---
Author Organization [facility] Address [facility] [place] [address] Care Team Providers Care Camper Assembler Name Role Phone Vanita Manzo MD Primary Care Provider [phone] Lam Montanez MD Unavailable Unavailabl e Terese Soriano MD Unavailable Encounter Details Date Type Department Care Team (Latest Contact Info) Description 11/18/2022 Mobile2Me Message Enc [facility] Cardiovascular Care Unit [address] [place] [address] [place], [facility] Provider discharge follow up call Social [...] place to sleep or slept in a fpc (including now)? No 11/14/2022 Sex and Gender [...] on filedocumented in this encounter Care Teams Camper Assembler Relationship Specialty Start Date End Date Vanita Manzo MD [address] [place] [phone] PCP - General INTERNAL MEDICINE 06/01/16 Lam Montanez MD [address] [place] [address] Messenger CARDIOVASCULAR DISEASE 06/01/16 11/16/23 Terese Soriano MD [address] [place] [address] Consulting Physician CARDIOVASCULAR DISEASE 11/17/23 documented as of this encounter
--- OUTSIDE RECORDS SUMMARY | 2024-10-23 08:49 | XMS_ITS | Encounter Summary ---
Author Organization [facility] Address [address] [place] [address] Care Team Providers Care Lumber Checker Name Role Phone Vanita Manzo MD Primary Care Provider [phone] Lam Montanez MD Unavailable Unavailabl e Terese Soriano MD Unavailable Encounter Details Date Type Department Care Team (Late st Contact Info) Description 11/18/2022 Hospital Follow-up Call [facility] Cardiovascular Care Unit [address] [place] [address] Yasmeen Trejo, RN Social History [...] place to sleep or slept in a long-term (including now)? No 11/14/2022 Sex and Gender [...] on filedocumented in this encounter Care Teams Lumber Checker Relationship Specialty Start Date End Date Vanita Manzo MD [address] [place] [phone] PCP - General INTERNAL MEDICINE 06/01/16 Lam Montanez MD [address] [place] [address] [place] Lead Software Developer CARDIOVASCULAR DISEASE 06/01/16 11/16/23 Terese Soriano MD [address] [place] [address] Consulting Physician CARDIOVASCULAR DISEASE 11/17/23 documented as of this encounter
[2024-10-23] MEDS: ZOLEDRONIC ACID 5 MG/100 ML 100 ML 400 MG IVPB (08:55)
--- NOTE | 2024-10-23 09:10 | PC.NURSE ---
Patient here for IV Reclast infusion. Education given. All concerns voiced. Infusion administered. SEE MAR/patient care notes. Tolerated well.
[2024-10-23 09:11] VITALS: BP 136/74; PULSE 80; RESP 14
== END 2024-10-23 08:25 | disposition home or self-care (01) ==
PROVIDERS: PCP Internal Medicine; Visit Provider Internal Medicine
DX: M81.0 Age-related osteoporosis without current pathological fracture (principal)
CPT/HCPCS: 96374; J3489

== ENCOUNTER 2025-07-17 15:56 | Outpatient (CLI) | payer MEDICARE, SELFPAY ==
--- NOTE | ~2025-07-17 | XR_ITS ---
[id number] Indication: NECK PAIN, R HIP PAIN Comparison: None Findings: Moderate loss of vertebral height throughout, no fracture identified. Grade 1 anterolisthesis of C5 on C6. Mild osteopenia. Moderate loss of disc height throughout. Soft tissues unremarkable Impression: No acute abnormality. Reviewed, dictated and finalized at location P. RVISOR DOCK Impression: No acute abnormality.
--- NOTE | ~2025-07-17 | XR_ITS ---
EXAMINATION: XR hip RT min 2V DATE: 07/17/2025 17:02 INDICATION: Right hip pain TECHNIQUE: Anteroposterior and frog-leg lateral views of the right hip were obtained. COMPARISON: 10/01/2019 FINDINGS: Alignment is normal. No fracture or suspected osteonecrosis. Unchanged mild osteoarthritis at the right hip and bilateral sacroiliac joints. IMPRESSION: 1. Mild right hip osteoarthritis. No acute osseous abnormality. Reviewed, dictated and finalized at location A. PRODUCTION MANAGER
--- OUTSIDE RECORDS SUMMARY | 2025-07-17 18:09 | XMS_ITS | Patient Health Record ---
Author Organization [facility] [employer] [facility] Address [address] [place] [address] Care Team Providers Care Guitar Repairer Name Role Phone Dalton Stout Unavailable [phone] Reason For Referral No Information Medications Medication SIG (Take, Route, Frequency, Duration) Notes Start Date End Date Status ARIPiprazole 5 MG Tablet Oral 09/02/2022 Active Fludrocortisone Acetate 0.1 MG Tablet Oral 09/02/2022 Active methylPREDNISolone 4 MG Tablet Therapy Pack Oral 09/02/2022 Active ARIPiprazole 10 MG Tablet Oral 09/02/2022 Active traZODone HCl 150 MG Tablet Oral 09/02/2022 Active LORazepam 0.5 MG Tablet Oral 09/02/2022 Active Tranylcypromine Sulfate 10 mg Tablet Oral 09/02/2022 Active lamoTRIgine 100 MG Tablet Oral 09/02/2022 Active Famotidine 20 MG Tablet Oral 09/02/2022 Active Atorvastatin Calcium 20 MG Tablet Oral 09/02/2022 Active Fluticasone Propionate Diskus 50 MCG/ACT Aerosol Powder Breath Activated Inhalation *Reorder from Button for eRx and Interaction Alerts* 09/02/2022 Active Omeprazole 40 MG Capsule Delayed Release Oral 09/02/2022 Active Social History Social History Additional Details Category Social Info Options Details Migrated Social History Migrated Social History Alcohol Intake: Occasional 09/02/2022,Tobacco Years: Never smoker 09/02/2022 Plan Of Treatment No Information Insurance Providers Payer Name Payer Address Payer Phone Subscriber Number Group Number Insured Name Patient Relationship to Insured Coverage Start Date Coverage End Date A[employer] Medicare Replacemen t/Advantag e - Ppo [address] [place] [phone] [id number] DIAN HAJI Self - patient is the insured Medicare-I l Medicare [address] [place] [phone] [id number] RAISSA DIAN Self - patient is the insured Medical (General) History Surgical History Surgery Date(Month/Year) Tonsilectomy/adenoids 1962
--- OUTSIDE RECORDS SUMMARY | 2025-07-17 18:09 | XMS_ITS | Patient Health Record ---
Author Organization [facility] Address [address] [place], [place] [id number] Care Team Providers Care Instructor Product Inspection Name Role Phone Vanita Manzo Unavailable Unavailable Reason For Referral No Information Social History Social History Additional Details Category Social Info Options Details Migrated Social History Migrated Social History History of tobacco use : , Smoking Status : Never used tobacco Plan Of Treatment No Information Insurance Providers Payer Name Payer Address Payer Phone Subscriber Number Group Number Insured Name Patient Relationship to Insured Coverage Start Date Coverage End Date Medicare Part B [place] [address] [place] [phone] [id number] MARLEEN HAJI Self - patient is the insured
--- OUTSIDE RECORDS SUMMARY | 2025-07-17 18:09 | XMS_ITS | Encounter Summary ---
Author Organization [facility] Address Critical access hospital[address] [place] [address] Care Team Providers Care School Psychology Professor Name Role Phone Vanita Manzo MD Primary Care Provider [phone] Lam Montanez MD Unavailable [phone] Terese Soriano MD Unavailable Encounter Details Date Type Department Care Team (Latest Contact Info) Description 11/18/2022 [employer] Organization Message Enc [facility] Cardiovascular Care Unit [address] [place] [address] [place], [facility] Provider discharge follow up call Social History [...] place to sleep or slept in a assisted (including now)? No 11/14/2022 Sex and Gender [...] 11/11/2022 11:30 PM CDT Sabrina Salgado RN Active * Are you blind or do you have serious difficulty seeing, even when wearing glasses? Answer Date of Assessment Author Status No 11/11/2022 11:30 PM CDT Sabrina Salgado RN Active * Do you have serious difficulty walking or climbing stairs? Answer Date of Assessment Author Status No 11/11/2022 11:30 PM Sabrina Calderón RN Active * Do you have difficulty dressing or bathing? Answer Date of Assessment Author Status No 11/11/2022 11:30 PM Sabrina Calderón RN Active * Because of a physical, mental, or emotional condition, do you have difficulty doing errands alone such as visiting a doctor's office or shopping? Answer Date of Assessment Author Status No 11/11/2022 11:30 PM Sabrina Calderón RN Active documented as of this encounter Mental Status * Because of a physical, mental, or emotional condition, do you have serious difficulty concentrating, remembering, or making decisions? Answer Entry Date Author Status No 11/11/2022 11:30 PM Sabrina Calderón RN Active documented in this encounter Plan of Treatment Not on file documented as of this encounter Goals Goal Patient Goal Type Associated Problems Recent Progress Patient-Stated? Author Safety Patient/family will have appropriate support at home upon discharge Lifestyle No Mona Nascimento RN documented as of this encounter Visit Diagnoses Not on filedocumented in this encounter Care Teams School Psychology Professor Relationship Specialty Start Date End Date Vanita Manzo MD [address] [place] [address] PCP - General INTERNAL MEDICINE 06/01/16 Lam Montanez MD [address] [place] [address] [place] Programming Internship CARDIOVASCULAR DISEASE 06/01/16 11/16/23 Terese Soriano MD [address] [place] [address] Consulting Physician CARDIOVASCULAR DISEASE 11/17/23 documented as of this encounter
--- OUTSIDE RECORDS SUMMARY | 2025-07-17 18:09 | XMS_ITS | Encounter Summary ---
Author Organization [facility] Address [facility] [place] [address] Care Team Providers Care Stage Technician Name Role Phone Vanita Manzo MD Primary Care Provider [phone] Lam Montanez MD Unavailable [phone] Terese Soriano MD Unavailable Encounter Details Date Type Department Care Team (Late st Contact Info) Description 01/18/2018 Abstract [facility] [address] [place] [phone] Lam Montanez MD [address] [place] [address] Social History Tobacco Use Types Packs/Day Years [...] on filedocumented in this encounter Care Teams Stage Technician Relationship Specialty Start Date End Date Vanita Manzo MD [address] [place] [address] PCP - General INTERNAL MEDICINE 06/01/16 Lam Montanez MD [address] [place] [address] [place] Remanufacturing Technician CARDIOVASCULAR DISEASE 06/01/16 11/16/23 Terese Soriano MD [address] [place] [address] Consulting Physician CARDIOVASCULAR DISEASE 11/17/23 documented as of this encounter
--- OUTSIDE RECORDS SUMMARY | 2025-07-17 18:09 | XMS_ITS | Clinical Summary ---
Author Organization [facility] Address [facility]ly [facility] [place] [address] Care Team Providers Care Sql Programmer Name Role Phone Vanita Manzo MD Primary Care Provider [phone] Terese Soriano MD Unavailable Allergies Active Allergy [...] Noted Date Diagnosed Date NSTEMI (non-ST elevated myocardial infarction) 0 11/12/2022 SOB (shortness of breath) 09/14/2022 Hyperlipidemia [...] 2. Surveillance colonoscopy due 11/2021. Bipolar disorder 07/17/2017 Coronary artery disease invo lving [place] coronary artery of [place] heart without angina pectoris Depression GERD (gastroesophageal [...] Disease Mother Relation Status Comments Father Mother [place] at 49 Social History Tobacco Use Types [...] place to sleep or slept in a correction (including now)? No 11/14/2022 Sex and Gender [...] 6:04 AM CDT Height 180.3 cm (5' 11) 03/20/2024 6:04 AM CDT Body Mass Index 27.2 03/20/2024 6:04 AM CDT Plan of Treatment Health Maintenance Due Date Last Done Comments ASCVD Statin 1955 Colorectal Cancer Screening Colonoscopy (10 Years) 1955 Hepatitis C 01/06/1972 RSV Immunization or 60+ Years (1 - Risk 60-74 years 1-dose series) 2014 Pneumococcal Vaccine: 50+ Years (2 of 2 - PPSV23, PCV20, or PCV21) 06/27/2015 05/02/2015 Annual Medicare Wellness Visit 2019 ASCVD LDL 11/13/2023 11/12/2022, 02/11/2019, 09/28/2017, Additional history exists DTaP, Tdap and Td Vaccines (2 - Td or Tdap) 05/20/2024 05/20/2014 COVID-19 Vaccine ( season) 2025 11/18/2021, 06/08/2021, 10/10/2020, Additional history exists Influenza Adult (#1) 2025 04/29/2021, 04/09/2020, 07/23/2019, Additional history exists Hepatitis A Vaccines Aged Out 07/18/2015, 01/17/20 15 No longer eligible based on patient's age to complete this topic Zoster Vaccines Completed 12/01/2021, 09/22/2021 Meningococcal B [...] Nascimento RN Medical Devices Implanted Type Area Preforms Laminator Device Identifier Shelf Expiration Date Model / Serial / Lot Iol Shimon [id number] - [id number] Implanted:Qty: 1 on 09/27/2023 by Param Shaffer Jr., MD at [facility] Lens Right: Eye [employer] [id number] 03/25/2027 [id number] / [id number] / NA Description:Dr Edmund martinez m IOL Iol Shimon [id number] - [id number] Implanted:Qty: 1 on 10/11/2023 by Param Shaffer Jr., MD at [facility] Lens Left: Eye [employer] [id number] 05/03/2027 [id number] / [id number] / N/A Description:Confirmed with junior shaffer and epic Procedures Procedure Name Priority Date/Time Associated Diagnosis Comments LIPID PANEL Routine 11/12/2022 12:23 AM CDT COLONOSCOPY Routine HEAD OF ICT from Last 3 Months or Most Recently [...] us Randy Donohue MD LABORATORY Final Result Performing Organization Address City/[facility]/ZIP Co de Phone Number [facility] [address] [place] [address], [phone] * Colonoscopy ( HEAD OF ICT) Narrative [facility] TO EPIC CONVERSION - 05/31/2018 12:00 AM CDT Documented hx of procedure Procedure Note Zeus Holm MD - 06/30/2018 Documented hx of procedure us Zeus Gonzalez Md, MD GI PROCEDURE ORDERABLES Final Result [facility] TO EP[facility] CONVERSION from Last 3 Months or Most Recently Relevant to Health Maintenance Insurance [employer] MEDICARE Advance Directives * Full Code (Latest Code Status on File) Date Activated Date Inactivated Comments 10/11/2023 8:37 AM 10/11/2023 10:59 AM * Full Code Date Activated Date Inactivated Comments 09/27/2023 10:51 AM 09/27/2023 1:59 PM * Full Code Date Activated Date Inactivated Comments 11/12/2022 12:08 AM 11/17/2022 2:28 PM Care Teams Sql Programmer Relationship Specialty Start Date End Date Vanita Manzo MD [address] [place] [address] PCP - General INTERNAL MEDICINE 06/01/16 Terese Soriano MD [address] [place] [address] Consulting Physician CARDIOVASCULAR DISEASE 11/17/23
--- OUTSIDE RECORDS SUMMARY | 2025-07-17 18:09 | XMS_ITS | Encounter Summary ---
Author Organization [facility] Address [facility] access hospital[address] [place] [address] Care Team Providers Care Golf Cart Maker Name Role Phone Vanita Manzo MD Primary Care Provider [phone] Lam Montanez MD Unavailable [phone] Terese Soriano MD Unavailable Encounter Details Date Type Department Care Team ([facility] Contact Info) Description 06/07/2016 Abstract [facility] [address] [place] [address] Lam Montanez MD [address] [place] [address] Social History Tobacco Use Types [...] on filedocumented in this encounter Care Teams Golf Cart Maker Relationship Specialty Start Date End Date Vanita Manzo MD [address] [place] [address] PCP - General INTERNAL MEDICINE 06/01/16 Lam Montanez MD [address] [place] [address] [place] Putter In CARDIOVASCULAR DISEASE 06/01/16 11/16/23 Terese Soriano MD [address] [place] [address] Consulting Physician CARDIOVASCULAR DISEASE 11/17/23 documented as of this encounter
--- OUTSIDE RECORDS SUMMARY | 2025-07-17 18:09 | XMS_ITS | Encounter Summary ---
Author Organization [facility] Address [facility] [place] [address] Care Team Providers Care Tool Room Attendant Name Role Phone Vanita Manzo MD Primary Care Provider [phone] Lam Montanez MD Unavailable [phone] Terese Soriano MD Unavailable Encounter Details Date Type Department Care Team (Late st Contact Info) Description 04/06/2017 Abstract [facility] [address] [place] [address] Lam Montanez MD [address] [place] [address] Social History Tobacco Use Types [...] on filedocumented in this encounter Care Teams Tool Room Attendant Relationship Specialty Start Date End Date Vanita Manzo MD [address] [place] [address] PCP - General INTERNAL MEDICINE 06/01/16 Lam Montanez MD [address] [place] [phone] [place] [employer] Kettle Tender CARDIOVASCULAR DISEASE 06/01/16 11/16/23 Terese Soriano MD [address] [place] [address] Consulting Physician CARDIOVASCULAR DISEASE 11/17/23 documented as of this encounter
--- OUTSIDE RECORDS SUMMARY | 2025-07-17 18:09 | XMS_ITS | Encounter Summary ---
Author Organization [facility] Address Critical access hospital[address] [place] [address] Care Team Providers Care Cyber Security Engineer Name Role Phone Vanita Manzo MD Primary Care Provider [phone] Lam Montanez MD Unavailable [phone] Terese Soriano MD Unavailable Encounter Details Date Type Department Care Team ([facility] Contact Info) Description 10/06/2017 Abstract [facility] [address] [place] [address] Lam Montanez MD [address] [place] [address] Social History Tobacco Use Types [...] on filedocumented in this encounter Care Teams Cyber Security Engineer Relationship Specialty Start Date End Date Vanita Manzo MD [address] [place] [address] PCP - General INTERNAL MEDICINE 06/01/16 Lam Montanez MD [address] [place] [address] [place] Toolroom Keeper CARDIOVASCULAR DISEASE 06/01/16 11/16/23 Terese oSriano MD [address] [place] [address] Consulting Physician CARDIOVASCULAR DISEASE 11/17/23 documented as of this encounter
--- OUTSIDE RECORDS SUMMARY | 2025-07-17 18:09 | XMS_ITS | Encounter Summary ---
Author Organization [facility] Address [address] [place] [address] Care Team Providers Care Unemployment Benefits Claims Taker Name Role Phone Vanita Manzo MD Primary Care Provider [phone] Lam Montanez MD Unavailable [phone] Terese Soriano MD Unavailable Encounter Details Date Type Department Care Team (Late st Contact Info) Description 11/18/2022 Hospital Follow-up Call [facility] [address] [place] [address] Yasmeen Trejo, RN Social History [...] on filedocumented in this encounter Care Teams Unemployment Benefits Claims Taker Relationship Specialty Start Date End Date Vanita Manzo MD [address] [place] [phone] PCP - General INTERNAL MEDICINE 06/01/16 Lam Montanez MD [address] [place] [address] [place] Tea Taster CARDIOVASCULAR DISEASE 06/01/16 11/16/23 Terese Soriano MD [address] [place] [address] Consulting Physician CARDIOVASCULAR DISEASE 11/17/23 documented as of this encounter
--- OUTSIDE RECORDS SUMMARY | 2025-07-17 18:09 | XMS_ITS | Encounter Summary ---
Author Organization [facility] Address [facility] [place] [address] Care Team Providers Care Forestry Support Specialist Name Role Phone Vanita Manzo MD Primary Care Provider [phone] Lam Montanez MD Unavailable [phone] Terese Soriano MD Unavailable Encounter Details Date Type Department Care Team (Late st Contact Info) Description 01/06/2019 Abstract [facility] [address] [address] , Generic Conversion, Social History Tobacco Use Types Packs/Day Years [...] on filedocumented in this encounter Care Teams Forestry Support Specialist Relationship Specialty Start Date End Date Vanita Manzo MD [address] [place] [address] PCP - General INTERNAL MEDICINE 06/01/16 Lam Montanez MD [address] [place] [phone] [place] Cable Splicer Assistant CARDIOVASCULAR DISEASE 06/01/16 11/16/23 Terese Soriano MD [address] [place] [address] Consulting Physician CARDIOVASCULAR DISEASE 11/17/23 documented as of this encounter
--- OUTSIDE RECORDS SUMMARY | 2025-07-17 18:09 | XMS_ITS | Encounter Summary ---
Author Organization [facility] Address [facility] [place] [address] Care Team Providers Care Burning Supervisor Name Role Phone Vanita Manzo MD Primary Care Provider [phone] Lam Montanez MD Unavailable [phone] Terese Soriano MD Unavailable Encounter Details Date Type Department Care Team (Late st Contact Info) Description 03/31/2017 Abstract [facility] [address] [place] [address] Lam Montanez MD [address] [place] [address] Social History Tobacco Use Types [...] on filedocumented in this encounter Care Teams Burning Supervisor Relationship Specialty Start Date End Date Vanita Manzo MD [address] [place] [address] PCP - General INTERNAL MEDICINE 06/01/16 Lam Montanez MD [address] [place] [phone] [place] String Studies Director CARDIOVASCULAR DISEASE 06/01/16 11/16/23 Terese Soriano MD [address] [place] [address] Consulting Physician CARDIOVASCULAR DISEASE 11/17/23 documented as of this encounter
== END 2025-07-17 15:57 | disposition home or self-care (01) ==
LOC: CHSIMG 15:58
PROVIDERS: PCP Internal Medicine; Visit Provider Internal Medicine
DX: M54.2 Cervicalgia (principal); M25.551 Pain in right hip; M16.11 Unilateral primary osteoarthritis, right hip
CPT/HCPCS: 72040; 73502